=== PATIENT | female | born 1965 | race Caucasian/White ===

== ENCOUNTER 2020-01-27 01:25 | Inpatient (IN) | payer OTHER ==
[2020-01-27] MEDS ORDERED: Diltiazem 125 MG/25 ML ONE ×2 (01:35→01:39)
[2020-01-27 01:57] LABS: #Basophils 0.1 thou/uL (0.0-0.2); #Eosinphils 0.6 thou/uL (0.0-0.7); #Lymphocytes 2.2 thou/uL (1.20-3.40); #Monocytes 0.6 thou/uL (0.11-0.59); #Neutrophils 6.1 thou/uL (1.40-6.50); %Basophils 0.9 % (0.0-1.0); %Lymphocytes 22.8 % (21.0-51.0); %Monocytes 6.6 % (0.0-10.0); %Neutrophils 63.7 % (42.0-75.0); Hemoglobin 15.4 g/dL (12.0-16.0); Mean Corpuscular HGB CONC 33.6 g/dL (32.0-36.0); Mean Corpuscular Hemoglobin 31.3 pg (27.0-31.0); Mean Corpuscular Volume 93.1 fL (78.0-98.0); Mean Platelet Volume 6.8 fL (7.4-10.4); Platelet Count 413 thou/uL (130-400); Red Blood Cell (RBC) Count 4.92 mill/uL (4.20-5.40); White Blood Cell (WBC) Count 9.6 thou/uL (4.8-10.8)
[2020-01-27 02:17] LABS: ALT (SGPT) 33 U/L (8-55); AST (SGOT) 24 U/L (5-34); Albumin 4.6 g/dL (3.5-5.0); Alkaline Phosphatase 168 U/L (40-110); Anion Gap 16 mmol/L (10-20); BUN (Urea Nitrogen) 14 mg/dL (9.8-20.1); Bilirubin, Total 0.9 mg/dL (0.2-1.2); CK (CPK) 50 U/L (29-168); Calc. Creatinine Clearance 0 mL/min (70-130); Calcium 9.7 mg/dL (7.8-10.44); Carbon Dioxide 25 mmol/L (22-29); Chloride 102 mmol/L (98-107); Estimated GFR-MDRD 73; Glucose 129 mg/dL (70-105); Lipase 14 U/L (8-78); Protein, Total 7.6 g/dL (6.0-8.3); Sodium 139 mmol/L (136-145)
[2020-01-27] MEDS ORDERED: Diltiazem HCl 125 MG, Admixture Fee 1 EACH in Sodium Chloride 0.9% 100 ML IVPB SCH (03:30)
[2020-01-27 05:12] LABS: Troponin I 0.042 ng/mL (< 0.028)
[2020-01-27 06:39] VITALS: BMI 26.6
[2020-01-27 08:22] LABS: Troponin I 0.056 ng/mL (< 0.028)
[2020-01-27] MEDS ORDERED: Bisacodyl 5 MG TAB PO PRN (10:15)
[2020-01-27] MEDS ORDERED: Ondansetron PF 4 MG/2 ML Vial IVP PRN (10:15)
[2020-01-27] MEDS ORDERED: Calcium Carbonate 500 MG ChewTAB PO PRN (10:15)
[2020-01-27] MEDS ORDERED: Acetaminophen 325 MG TAB PO PRN (10:15)
[2020-01-27] MEDS ORDERED: Senokot S 8.6-50 MG TAB PO PRN (10:15)
--- NOTE | 2020-01-27 10:24 | RAD ---
PORTABLE CHEST: Date: 01/27/2020 HISTORY: Chest pain. COMPARISON: 01/11/2020. FINDINGS: Cardiomegaly with postop sternotomy change. Mild vascular engorgement appears stable. No focal infilt rate or consolidation. IMPRESSION: Cardiomegaly with mild vascular engorgement. POS: AGW
--- NOTE | 2020-01-27 11:27 | PDOC.HHP ---
Hospitalist HPI - History of Present Illness cough, palpitations History of Present Illness: This is a 54 year old female with history of CAD s/p CABG, prediabetes, polycystic ovary disease who presented to the ER with cough and palpitations. The patient is s/p CABG on 01/08. She was discharged on 01/12. She reports that 01/22 she started developing a cough. She went for a follow up visit with Dr. Mims who told her to take her allergy medicine and to increase the dose of one of her medicines ( possibly entresto?), however patient has not done that yet. Her cough has since progressed from a dry cough to a productive cough with clear phlegm. She reports no relief with claritin and has not been taking flonase or inhaled steroids recently since it makes her blood pressure high. SHe denies fevers, chills ,runny nose or sore throat. SHe does report chest pain with taking a deep breath . She denies leg swelling. SHe does have dyspnea on exertion and gets especially short of breath ambulating to the bathroom . Additionally, the patient complains of palpitations since 01/22 after the patient arrived home from Dr. Fermin's office. She states the first episode occurred around 5 pm after performing chores. It resolved spontaneously after 2 minutes. On 01/23 at around 5:00 pm she experienced another episode that lasted approximately 1-2 minutes. SHe states her blood pressure was 200/120 and her heart rate was 150 at the time. Again this self-resolved and she went to sleep and assumed it was from stress/anxiety or caffeine. She reports performing chores shortly before this episode as well. Last night, she had a third episode of palpitations at around 10:30 pm. Her heart rate was not coming down its own. She experienced chest pain, left arm pain, severe nausea, dizziness and lightheadedness. She became extremely scared and felt she was going to and called her who brought her to the ER. ED Course: WHen the patient presented to the ER, she had a blood pressure of 187/115, heart rate of 150. Her oxygen saturation was normal. EKG showed new onset atrial fibrillation. Labs showed mildly elevated troponin and BNP of 600. She had a chest X ray which showed mild pulmonary vascular congestion. She was given IV fluid, and started on diltiazem drip. Hospitalist ROS - Review of Systems Constitutional: denies: fever, chills ENT: denies: ear pain, ear discharge Respiratory: reports: cough Cardiovascular: denies: chest pain, palpitations, orthopnea Gastrointestinal: denies: nausea, vomiting, abdominal pain, other Genitourinary: denies: dysuria Musculoskeletal: denies: neck pain, shoulder pain, foot pain Skin: denies: rash, lesions Hospitalist History - Past Medical History Cardiac: reports: CAD Other Medical History: Allergies Prediabetes Polycystic ovarian - Past Surgical History Past Surgical History: reports: CABG - Family History Other Family History: sister had bypass surgery and also had an arrhythmia requiring cardioversion - Social History Smoking Status: Former smoker (smoked few cigarettes occasionally, quit since her surgery) Alcohol: reports: None (but used to drink occasionally) Drugs: reports: none Living Situation: Other (with spouse) Occupation: retired, had her own business - Exam General Appearance: NAD, awake alert General - other findings: overweight Eye: PERRL, anicteric sclera ENT: normocephalic atraumatic, no oropharyngeal lesions Neck: no JVD Heart: RRR, no murmur, no gallops, no rubs Respiratory: CTAB, no wheezes, no rales, no ronchi Gastrointestinal: soft, non-tender, non-distended, normal bowel sounds Extremities: no cyanosis, no clubbing, no edema Skin: normal turgor, no lesions, no rashes Neurological: cranial nerve grossly intact, normal sensation to touch, no focal deficits, no new deficit Musculoskeletal: normal tone, normal strength, no muscle wasting Psychiatric: normal affect, normal behavior, A&O x 3, oriented to person Hospitalist Results - Labs Result Diagrams: 01/27/20 01:45 01/27/20 01:45 Lab results: WBC 9.6 thou/uL (4.8-10.8) 01/27/20 01:45 Hgb 15.4 g/dL (12.0-16.0) 01/27/20 01:45 Hct 45.8 % (36.0-47.0) 01/27/20 01:45 MCV 93.1 fL (78.0-98.0) 01/27/20 01:45 Plt Count 413 thou/uL (130-400) H 01/27/20 01:45 Neutrophils % 63.7 % (42.0-75.0) 01/27/20 01:45 Sodium 139 mmol/L (136-145) 01/27/20 01:45 Potassium 4.0 mmol/L (3.5-5.1) 01/27/20 01:45 Chloride 102 mmol/L (98-107) 01/27/20 01:45 Carbon Dioxide 25 mmol/L (22-29) 01/27/20 01:45 BUN 14 mg/dL (9.8-20.1) 01/27/20 01:45 Creatinine 0.82 mg/dL (0.6-1.1) 01/27/20 01:45 Glucose 129 mg/dL (70-105) H 01/27/20 01:45 Calcium 9.7 mg/dL (7.8-10.44) 01/27/20 01:45 Total Bilirubin 0.9 mg/dL (0.2-1.2) 01/27/20 01:45 AST 24 U/L (5-34) 01/27/20 01:45 ALT 33 U/L (8-55) 01/27/20 01:45 Alkaline Phosphatase 168 U/L (40-110) H 01/27/20 01:45 Creatine Kinase 50 U/L (29-168) 01/27/20 01:45 CK-MB (CK-2) 1.0 ng/mL (0-6.6) 01/27/20 01:45 Troponin I 0.056 ng/mL (< 0.028) H 01/27/20 07:43 B-Natriuretic Peptide 601.0 pg/mL (0-100) H 01/27/20 01:45 Serum Total Protein 7.6 g/dL (6.0-8.3) 01/27/20 01:45 Albumin 4.6 g/dL (3.5-5.0) 01/27/20 01:45 Lipase 14 U/L (8-78) 01/27/20 01:45 Hospitalist H&P A/P - Plan Plan: THis is a 54 year old female who presents with afib after recent CABG one week prior as well as cough Afib -patient reports new onset afib after CABG -currently controlled on cardizem drip. Resume home metoprolol dose 25 mg - start lovenox SC BID therapeutic - obtain CTA to rule out PE - repeat ECHO, last one done showed poor EF, but unable to assess - cardiology consult - hold off on diuretic for now til after imaging Cough- possibly from pulm congestion versus allergies vs GERD vs from afib - will order tessalon pearls, PPI - hold off on inhalers for now unless no improvement Elevated troponin - likely type II demand ischemia secondary to afib vs post op - continue to trend troponin for now - repeat ECHO - morphine prn for chest pain CAD s/p CABG - continue aspirin, but will reduce dose to 81 mg since starting anticoagulation - continue statin, metoprolol, entresto - cardiothoracic surgery consult DVT prophylaxis: starting lovenox Code status: full code
[2020-01-27] MEDS ORDERED: Pantoprazole 40 MG VIAL IVP SCH (11:30)
[2020-01-27] MEDS ORDERED: Enoxaparin Sodium 60 MG/0.6 ML SYRINGE SC SCH (11:45)
[2020-01-27] MEDS ORDERED: Hydrocortisone Acetate 25 MG Suppository PR PRN (11:51)
[2020-01-27] MEDS: Morphine 2 MG/ML VIAL SLOW IVP PRN (11:58)
[2020-01-27] MEDS ORDERED: Metoprolol Tartrate 25 MG TAB PO SCH (12:00)
[2020-01-27] MEDS ORDERED: Aspirin 81 mg Enteric Coated Tablet PO SCH (12:15)
--- NOTE | 2020-01-27 12:55 | CT ---
CTA CHEST WITH CONTRAST: Date: 01/27/2020 Axial tomograms obtained following angio protocol with multiplanar reconstructions and 3D postprocess ing. INDICATION: Chest pain. Post CABG procedure. New onset atrial fibrillation. FINDINGS: The pulmonary arteries show adequate opacification. There is no evidence of pulmonary embolus. Thorac ic aorta shows minimal opacification; however, no evidence of dissection identified. Mediastinum unremarkable. Review of the lung bills shows small left pleural effusion. There may be a tiny pericardial effusion present. Streaky atelectasis in the left lung base. No definite infiltrate. Mild vascular congestion with card iomegaly. Images through upper abdomen show nonspecific density in the gallbladder. Consider gallbladder ultras ound. IMPRESSION: 1. No evidence of pulmonary embolus. 2. Small left pleural effusion and mild left basilar atelectasis. 3. Evidence of a tiny pericardial effusion. 4. Increased density in the gallbladder. Correlate with gallbladder ultrasound. POS: AGW
[2020-01-27] MEDS ORDERED: Furosemide 20 MG TAB PO SCH (14:00)
[2020-01-27 14:24] LABS: SARS-CoV-2 MS2 Positive; SARS-CoV-2 N Gene Negative; SARS-CoV-2 S Gene Negative; SARS-CoV-2 by NAA Not Detected (NotDetected); SARS-CoV-2 orf1ab Negative
[2020-01-27] MEDS ORDERED: Iopamidol-370 76% 500 ML 1 ML ONE (14:37)
[2020-01-27] MEDS: Furosemide 40 MG TAB PO SCH (14:51)
[2020-01-27] MEDS ORDERED: Potassium Chloride 20 MEQ TAB PO SCH (15:45)
[2020-01-27] MEDS ORDERED: Furosemide 40 MG/4 ML VIAL SLOW IVP SCH (15:45)
[2020-01-27] MEDS ORDERED: Spironolactone 25 MG TAB PO SCH (16:00)
[2020-01-27 16:24] LABS: CKMB 1.5 ng/mL (0-6.6)
[2020-01-27] MEDS ORDERED: Amiodarone 200 MG TAB PO SCH (16:45)
--- NOTE | 2020-01-27 18:55 | CON ---
DATE OF CONSULTATION: 01/27/2020 REQUESTING PHYSICIAN: Dr. Boone. CHIEF COMPLAINT: Palpitations. HISTORY OF PRESENT ILLNESS: The patient is a 54-year-old woman, who about 3 weeks ago, presented with severe episode of chest pain after having had a more stable pattern of chest pain for the previous few months. She had no ST elevation, but had elevated troponins. She underwent cardiac catheterization, and at the time of her catheterization, she had a markedly elevated LVEDP approaching 40, but an LVEF of approximately 60% to 65%. At the time of revascularization the following day, however, she had an obviously ischemic ventricle with marked hypertrophy and her LVEF was approximately 30% on intraoperative MICHAEL. Her left atrium was noted to be quite enlarged. A transthoracic echocardiogram done in the postoperative period was able to verify decreased contractility, but she had a markedly suboptimal study, making it difficult to more objectively quantify her ejection fraction. Immediately post revascularization, CVPs were much improved. She was started on Entresto and discharged on postoperative day 4 with an admonition to refrain from smoking and because of an elevated bilirubin to refrain from drinking alcohol. About 3 or 4 days ago, she began having a dry cough that was persistent and became somewhat aggravating. It exacerbated some soreness in her sternotomy incision and has resulted in some hoarseness. She had brief episodes of some palpitations, but on the night of presentation, she had persistent palpitations. She describes the sensation as feeling like her chest was going to explode and that she was going to . She was quite scared and she was brought to the hospital and was found to be in atrial fibrillation with a heart rate of 154 and her blood pressure was 187/115, her room air O2 saturations however were 97%. She was started on a Cardizem drip. She persisted in atrial fibrillation with a rapid rate for about 2 hours, but then converted to a sinus rhythm, and upon arrival on the telemetry mack, she had a heart rate of 50 and her blood pressure was 156/84. PAST MEDICAL HISTORY: Significant for known history of coronary artery disease, having undergone stenting of a diagonal about 5 years ago. She has hypertension. SOCIAL HISTORY: She continues to smoke, although she has cut down. Denies any illicit drug use, but had increased her alcohol consumption in the COVID pandemic. MEDICATIONS: Her outpatient medications at the time of her presentation with her ID were; 1. Baby aspirin a day. 2. Coreg 3.125 mg a day. 3. Norvasc 5 mg a day. Her medications at discharge following her surgery were; 1. Adult aspirin. 2. Lipitor 20 mg at bedtime. 3. Lasix 40 mg a day. 4. Lopressor 6.25 mg b.i.d. 5. Potassium 10 mEq a day. 6. Entresto one tablet b.i.d. 7. She was to discontinue her Coreg and her Norvasc. Current medications are; 1. Baby aspirin. 2. Lipitor. 3. Cardizem drip, it has since been stopped. 4. Lovenox 60 mg b.i.d. 5. Lasix 40 mg b.i.d. ALLERGIES: SHE REPORTS ALLERGIES TO PENICILLINS AND TETRACYCLINES. REVIEW OF SYSTEMS: Notable for the palpitations, mild shortness of breath. She denies orthopnea. She denies any change in the quality of her chest discomfort or cough when she leans forward or lies back. PHYSICAL EXAMINATION: GENERAL: She is anxious. VITAL SIGNS: Heart rate is 58, blood pressure 195/89. LUNGS: Clear breath sounds. HEART: Regular rate and rhythm. Her incisions were clean and dry. Right hand on the side of her radial artery harvest is pink. Her sternum is stable. She has minimal if any dependent edema. LABORATORY DATA: Her hemoglobin is 15.4 (preoperatively it was 18, at the time of discharge it was 13.1). Her electrolytes are normal. BUN 14, creatinine 0.82, glucose 129. Her bilirubin is now 0.9, AST is 24, ALT 33, alkaline phosphatase 168. Calcium is 9.7, albumin 4.6. BNP is 601.0. Her troponins were 0.035, 0.042, and 0.056. Her chest x-ray showed some mild to moderate edema, cardiomegaly, and very slight blunting of the left costophrenic angle. Her CT scan showed a small left pleural effusion. IMPRESSION AND RECOMMENDATIONS: She will almost surely require medications to keep her atrial fibrillation under control, but based upon response to Cardizem and her underlying slow heart rate during her last hospitalization, she may not tolerate negative chronotropes very well. Her incisions all seem to be healing well and her sternum seems to be tolerating the cough so far. My only thing to add to raise the question of whether the valsartan in her Entresto could be contributing to her cough. I have discussed this with Dr. Borden. He is going to hold that for now. Job ID: [id number]
[2020-01-27] MEDS: Benzonatate 100 MG CAP PO PRN ×2 (19:12→23:53)
[2020-01-27] MEDS: Enoxaparin Sodium 60 MG/0.6 ML SYRINGE SC SCH (19:59)
[2020-01-27] MEDS: Atorvastatin Calcium 20 MG TAB PO SCH (20:00)
[2020-01-27] MEDS: Amiodarone 200 MG TAB PO SCH (20:00)
[2020-01-27] MEDS: Pantoprazole 40 MG VIAL IVP SCH (20:01)
[2020-01-27 20:59] LABS: CKMB 1.6 ng/mL (0-6.6)
[2020-01-28] MEDS: Morphine 2 MG/ML VIAL SLOW IVP PRN ×2 (02:34→21:32)
[2020-01-28 04:26] LABS: #Basophils 0.1 thou/uL (0.0-0.2); #Eosinphils 0.4 thou/uL (0.0-0.7); #Lymphocytes 2.2 thou/uL (1.20-3.40); #Monocytes 0.6 thou/uL (0.11-0.59); %Basophils 1.2 % (0.0-1.0); %Eosinophils 4.7 % (0.0-10.0); %Lymphocytes 26.7 % (21.0-51.0); %Monocytes 6.7 % (0.0-10.0); %Neutrophils 60.7 % (42.0-75.0); Hemoglobin 13.8 g/dL (12.0-16.0); Mean Corpuscular HGB CONC 33.5 g/dL (32.0-36.0); Mean Corpuscular Hemoglobin 31.3 pg (27.0-31.0); Mean Corpuscular Volume 93.4 fL (78.0-98.0); Mean Platelet Volume 6.8 fL (7.4-10.4); Platelet Count 321 thou/uL (130-400); Red Blood Cell (RBC) Count 4.42 mill/uL (4.20-5.40); White Blood Cell (WBC) Count 8.2 thou/uL (4.8-10.8)
[2020-01-28 04:44] LABS: Anion Gap 15 mmol/L (10-20); BUN (Urea Nitrogen) 14 mg/dL (9.8-20.1); Calc. Creatinine Clearance 86 mL/min (70-130); Calcium 9.4 mg/dL (7.8-10.44); Carbon Dioxide 23 mmol/L (22-29); Chloride 103 mmol/L (98-107); Estimated GFR-MDRD 68; Glucose 111 mg/dL (70-105); Potassium 3.9 mmol/L (3.5-5.1); Sodium 137 mmol/L (136-145)
--- NOTE | 2020-01-28 06:25 | CON ---
DATE OF CONSULTATION: PRIMARY COOK RESTAURANT: Dr. Ari Mims. REASON FOR CONSULTATION: Tachycardia, recent bypass surgery. HISTORY OF PRESENT ILLNESS: Ms. Schmidt is a very pleasant 54-year-old woman. She recently underwent coronary artery bypass grafting. The patient had undergone cardiac catheterization on 01/08/2020, found to have a long mid LAD lesion, severe lesion in the obtuse marginal 1, occluded groove of circumflex and attempted wire placement would not cross, proximal RCA disease, normal ejection fraction, markedly increased end-diastolic pressure. The patient underwent bypass surgery successfully by Dr. Jacob. The patient did well in the postoperative period, but she said she has been short of breath and feels like it is hard to get a good deep breath. She has also had feeling of a rapid heart rate, some very brief, but the one that brought her to the hospital was very rapid and very uncomfortable to her. She came here to the hospital, found to have a tachycardia. EKG reveals a rate of 157. The computer read it as atrial fibrillation, but it may be atrial flutter, it is hard to tell. She also has a right bundle-branch block. The patient was started on diltiazem, and at some point, converted into sinus rhythm and sinus bradycardia. The patient feels well now, but still feels like she can not get a good deep breath. She also has a severe cough she has been unable to get rid of. HOME MEDICATIONS: She is on; 1. Lasix 40 mg a day for 14 days. 2. Atorvastatin 20 mg a day. 3. Aspirin. 4. Metoprolol 6.25 mg twice a day. 5. Potassium. 6. Entresto twice a day. ALLERGIES: PENICILLIN AND TETRACYCLINES. REVIEW OF SYSTEMS: CONSTITUTIONAL: No significant weight gain or loss. VISION: No changes. HEARING: No changes. PULMONARY: Positive for cough. Positive for shortness of breath. CARDIAC: Positive for shortness of breath, hard to get a good deep breath. GASTROINTESTINAL: No nausea, vomiting, or diarrhea. SKIN: No rashes. NEUROLOGIC: No unilateral weakness or numbness. PSYCHIATRIC: No unusual depression or anxiety. PHYSICAL EXAMINATION: GENERAL: This is a pleasant 54-year-old woman, resting comfortably now. VITAL SIGNS: Heart rate is in the mid 50s, blood pressure, however, is high at 195/89, . LUNGS: Clear. CARDIAC: Normal S1, normal S2. ABDOMEN: Soft and nontender. EXTREMITIES: Warm and dry. No clubbing or cyanosis. Only minimal edema. PERTINENT LABORATORY DATA: Potassium is 4.0. BNP is high at 601. EKG revealed a tachycardia with a right bundle-branch block pattern that could be atrial fibrillation, but it could also be atrial flutter or atrial tachycardia. Now, she is in sinus bradycardia. ASSESSMENT: 1. Shortness of breath, probably related to diastolic heart failure. 2. Atrial arrhythmias as outlined above. We will start low-dose amiodarone and observe. Explained we would not want her to have long-term amiodarone therapy, which would have a significant risk of pulmonary toxicity. 3. Continue to monitor. If she has what looks like atrial flutter, may need EP consult for ablation. We will follow with you. Job ID: [id number]
--- NOTE | 2020-01-28 07:47 | ULT ---
GALLBLADDER ULTRASOUND: INDICATIONS: Abdominal pain. Epigastric pain. FINDINGS: Images of the gallbladder reveal echogenic sludge within the dependent portion of the gallbladder. No focal gallstone identified. The gallbladder wall is mildly prominent, measured at 3 to 4 mm. The shobha hnologist describes a negative Fountain sign. The common bile duct is of normal caliber. The visualized pancreas, liver and right kidney appear unr emarkable. IMPRESSION: Evidence of echogenic sludge within the gallbladder and mild gallbladder wall thickening. POS: AGW
[2020-01-28] MEDS: Spironolactone 25 MG TAB PO SCH (09:14)
[2020-01-28] MEDS: Furosemide 40 MG TAB PO SCH ×2 (09:14→14:33)
[2020-01-28] MEDS: Amiodarone 200 MG TAB PO SCH ×2 (09:14→14:42)
[2020-01-28] MEDS: Enoxaparin Sodium 60 MG/0.6 ML SYRINGE SC SCH ×2 (09:14→21:57)
[2020-01-28] MEDS: Pantoprazole 40 MG VIAL IVP SCH ×2 (09:14→21:32)
[2020-01-28] MEDS: Aspirin 81 mg Enteric Coated Tablet PO SCH (09:14)
--- NOTE | 2020-01-28 15:21 | PDOC.HOSPP ---
- Subjective Encounter Date: 01/28/20 Encounter Time: 12:00 Subjective: The patient states she is feeling much better. Cough resolved last night, she is not sure what helped if it was cough medication or something else She is sinus rhythm today but was tachycardic this morning. Patient expresses desire to not be on long-term amiodarone and would be interested in an ablation - Objective Vital Signs & Weight: Vital Signs (12 hours) Temp Pulse Resp BP Pulse Ox 01/28/20 12:00 98 01/28/20 11:33 97.9 F 58 L 16 144/83 H 01/28/20 11:30 53 L 144/83 H 98 01/28/20 07:00 97.7 F 56 L 18 177/95 H 95 Weight Weight 160 lb I&O: 01/27/20 01/28/20 01/29/20 06:59 06:59 06:59 Intake Total 1139.1 477 Output Total 1400 Balance -260.9 477 Result Diagrams: 01/28/20 04:13 01/28/20 04:13 Hospitalist ROS - Review of Systems Constitutional: denies: fever, chills - Medication Medications: Active Medications Generic Name Dose Route Start Last Admin Trade Name Freq PRN Reason Stop Dose Admin Acetaminophen 650 mg 01/27/20 10:15 01/27/20 23:53 Tylenol PO 650 mg Q4H PRN Administration Headache/Fever/Mild Pain (1-3) Amiodarone HCl 200 mg 01/27/20 21:00 01/28/20 14:42 Cordarone PO 200 mg TID COSME Administration Aspirin 81 mg 01/28/20 09:00 01/28/20 09:14 Ecotrin PO 81 mg DAILY COSME Administration Atorvastatin Calcium 20 mg 01/27/20 21:00 01/27/20 20:00 Lipitor PO 20 mg HS COSME Administration Benzonatate 100 mg 01/27/20 11:26 01/27/20 23:53 Tessalon PO 100 mg TIDPRN PRN Administration Cough Enoxaparin Sodium 60 mg 01/27/20 21:00 01/28/20 09:14 Lovenox SC 60 mg 0900,2100 COSME Administration Furosemide 40 mg 01/27/20 14:00 01/28/20 14:33 Lasix PO 40 mg 0900,1400 COSME Administration Metoprolol Succinate 25 mg 01/28/20 09:00 01/28/20 09:14 Toprol Xl PO 25 mg BID COSME Administration Morphine Sulfate 2 mg 01/27/20 11:30 01/28/20 02:34 Morphine SLOW IVP 2 mg Q4H PRN Administration Pain Pantoprazole Sodium 40 mg 01/27/20 21:00 01/28/20 09:14 Protonix IVP 40 mg Q12HR COSME Administration Sodium Chloride 10 ml 01/27/20 21:00 01/28/20 09:15 Flush - Normal Saline IVF 10 ml Q12HR COSME Administration Spironolactone 25 mg 01/28/20 08:00 01/28/20 09:14 Aldactone PO 25 mg QAM-WM COSME Administration - Exam General Appearance: NAD, awake alert Eye: PERRL, anicteric sclera ENT: normocephalic atraumatic, no oropharyngeal lesions Neck: no JVD Heart: RRR, no murmur, no gallops, no rubs Respiratory: CTAB, no wheezes, no rales, no ronchi Gastrointestinal: soft, non-tender, non-distended, normal bowel sounds Extremities: no cyanosis, no clubbing, no edema Skin: normal turgor, no lesions, no rashes Neurological: cranial nerve grossly intact, normal sensation to touch, no focal deficits, no new deficit Hosp A/P - Plan CTA thorax: left pleural effusion, tiny pericardial effusion Abd Ultrasound: echogenic sludge with mild gallbladder wall thickening THis is a 54 year old female who presents with afib after recent CABG one week prior as well as cough Afib/flutter - currently off cardizem drip - she has been started on amiodarone by cardiology. EP has been consulted - CTA negative for PE - repeat ECHO pending - continue therapeutic lovenox Cough- possibly from pleural effusion versus allergies vs GERD vs from afib - CTA showed left pleural effusion. She received IV lasix yesterday 40 mg - continue tessalon pearls prn - entresto has been discontinued due to concerns for cough - kavon prn Elevated troponin - likely type II demand ischemia secondary to afib vs post op -troponin downtrending, ECHO done and pending CAD s/p CABG - continue aspirin, but will reduce dose to 81 mg since starting anticoagulation - continue statin, metoprolol. Entresto held due to cough - cardiothoracic surgery is following - she is on lasix 40 mg bid Gallbladder density - abd US showed sludge Dispo: EP consult in am
[2020-01-28] MEDS ORDERED: Loratadine 10 MG TAB PO PRN (15:22)
[2020-01-28] MEDS: Benzonatate 100 MG CAP PO PRN (21:32)
[2020-01-28] MEDS: Atorvastatin Calcium 20 MG TAB PO SCH (21:32)
[2020-01-29 04:22] LABS: Hemoglobin 14.8 g/dL (12.0-16.0)
[2020-01-29 04:44] LABS: Anion Gap 16 mmol/L (10-20); BUN (Urea Nitrogen) 17 mg/dL (9.8-20.1); Calc. Creatinine Clearance 94 mL/min (70-130); Calcium 9.8 mg/dL (7.8-10.44); Carbon Dioxide 24 mmol/L (22-29); Chloride 99 mmol/L (98-107); Estimated GFR-MDRD 68; Glucose 101 mg/dL (70-105); Potassium 4.1 mmol/L (3.5-5.1); Sodium 135 mmol/L (136-145)
[2020-01-29] MEDS ORDERED: ALPRAZolam 0.5 MG TAB PO SCH (04:45)
[2020-01-29] MEDS: Enoxaparin Sodium 60 MG/0.6 ML SYRINGE SC SCH (14:00)
[2020-01-29] MEDS: Furosemide 40 MG TAB PO SCH ×2 (14:00→14:25)
[2020-01-29] MEDS: Pantoprazole 40 MG VIAL IVP SCH ×2 (14:01→21:10)
--- NOTE | 2020-01-29 14:23 | PDOC.HOSPP ---
- Subjective Encounter Date: 01/29/20 Encounter Time: 10:00 Subjective: The patient reports only a mild cough. She states that yesterday at 6:00 am she had episode of afib and another episode in the evening yesterday which lasted approximately five minutes. She was in sinus rhythm on my eval this morning. She denies palpitations. Reported that she did not want to be on amiodarone and preferred ablation and was very anxious to get procedure over with Per cardiology she has agreed to multaq however - Objective Vital Signs & Weight: Vital Signs (12 hours) Temp Pulse Resp BP Pulse Ox 01/29/20 11:27 98.0 F 61 18 179/97 H 95 01/29/20 08:06 95 01/29/20 07:44 97.7 F 53 L 18 171/89 H 95 01/29/20 04:00 98.4 F 22 H 181/97 H 93 L Weight Weight 175 lb 1.6 oz I&O: 01/28/20 01/29/20 01/30/20 06:59 06:59 06:59 Intake Total 1139.1 1437 Output Total 1400 1450 Balance -260.9 -13 Result Diagrams: 01/29/20 04:12 01/29/20 04:12 Hospitalist ROS - Review of Systems Constitutional: denies: fever, chills - Medication Medications: Active Medications Generic Name Dose Route Start Last Admin Trade Name Freq PRN Reason Stop Dose Admin Acetaminophen 650 mg 01/27/20 10:15 01/27/20 23:53 Tylenol PO 650 mg Q4H PRN Administration Headache/Fever/Mild Pain (1-3) Aspirin 81 mg 01/28/20 09:00 01/28/20 09:14 Ecotrin PO 81 mg DAILY COSME Administration Atorvastatin Calcium 20 mg 01/27/20 21:00 01/28/20 21:32 Lipitor PO 20 mg HS COSME Administration Benzonatate 100 mg 01/27/20 11:26 01/28/20 21:32 Tessalon PO 100 mg TIDPRN PRN Administration Cough Bisacodyl 10 mg 01/27/20 10:15 01/28/20 21:38 Dulcolax PO 10 mg DAILYPRN PRN Administration Constipation Enoxaparin Sodium 60 mg 01/27/20 21:00 01/29/20 14:00 Lovenox SC Not Given 0900,2100 COSME Furosemide 40 mg 01/27/20 14:00 01/29/20 14:00 Lasix PO Not Given 0900,1400 COSME Morphine Sulfate 2 mg 01/27/20 11:30 01/28/20 21:32 Morphine SLOW IVP 2 mg Q4H PRN Administration Pain Pantoprazole Sodium 40 mg 01/27/20 21:00 01/29/20 14:01 Protonix IVP Not Given Q12HR COSME Sodium Chloride 10 ml 01/27/20 21:00 01/28/20 21:32 Flush - Normal Saline IVF 10 ml Q12HR COSME Administration Spironolactone 25 mg 01/28/20 08:00 01/28/20 09:14 Aldactone PO 25 mg QAM-WM COSME Administration - Exam General Appearance: NAD, awake alert Eye: PERRL, anicteric sclera ENT: normocephalic atraumatic, no oropharyngeal lesions Neck: no JVD Heart: RRR, no murmur, no gallops, no rubs Respiratory: CTAB, no wheezes, no rales, no ronchi Gastrointestinal: soft, non-tender, non-distended, normal bowel sounds Extremities: no cyanosis, no clubbing, no edema Skin: normal turgor, no lesions, no rashes Neurological: cranial nerve grossly intact, normal sensation to touch, no focal deficits, no new deficit Musculoskeletal: normal tone, normal strength, no muscle wasting Hosp A/P - Plan CTA thorax: left pleural effusion, tiny pericardial effusion Abd Ultrasound: echogenic sludge with mild gallbladder wall thickening THis is a 54 year old female who presents with afib after recent CABG one week prior as well as cough Afib/flutter - currently off cardizem drip, on toprol XL 25 mg daily - amiodarone was switched to dronedarone. Plan for outpatient ablation in one to two weeks - will switch from lovenox to eliquis Hypertension - started on spironolactone 25 mg, continue metoprolol XL 25 mg daily - will add lisinopril 5 mg daily Cough- possibly from pleural effusion versus allergies vs GERD vs from afib - CTA showed left pleural effusion. She received IV lasix 40 mg on 01/27 - continue tessalon pearls prn - entresto has been discontinued due to concerns for cough - kavon prn - repeat chest X ray to assess resolution of pleural effusion Elevated troponin - likely type II demand ischemia secondary to afib vs post op -troponin downtrending, ECHO done and shows no wall motion abnormalities CAD s/p CABG - continue aspirin 81 mg, statin, metoprolol - she is stable from CV surgery standpoint Gallbladder density - abd US showed sludge Dispo: EP consult in am
[2020-01-29] MEDS: Spironolactone 25 MG TAB PO SCH (14:25)
[2020-01-29] MEDS: Aspirin 81 mg Enteric Coated Tablet PO SCH (14:25)
[2020-01-29] MEDS ORDERED: Lisinopril 5 MG TAB PO SCH (14:30)
--- NOTE | 2020-01-29 15:01 | PDOC.CPN ---
- Subjective Date: 01/29/20 Time: 15:04 Interval history: The pt seen and examined. No overnight events. No cardiac complaints. - Objective Allergies/Adverse Reactions: Allergies Allergy/AdvReac Type Severity Reaction Status Date / Time Penicillins Allergy Verified 01/09/20 00:50 Tetracyclines Allergy Verified 01/09/20 00:50 Visit Medications: Current Medications Acetaminophen (Tylenol) 650 mg PO Q4H PRN PRN Reason: Headache/Fever/Mild Pain (1-3) Last Admin: 01/27/20 23:53 Dose: 650 mg Apixaban (Eliquis) 5 mg PO BID [facility] Aspirin (Ecotrin) 81 mg PO DAILY [facility] Last Admin: 01/29/20 14:25 Dose: 81 mg Atorvastatin Calcium (Lipitor) 20 mg PO [facility] Last Admin: 01/28/20 21:32 Dose: 20 mg Benzonatate (Tessalon) 100 mg PO TIDPRN PRN PRN Reason: Cough Last Admin: 01/28/20 21:32 Dose: 100 mg Bisacodyl (Dulcolax) 10 mg PO DAILYPRN PRN PRN Reason: Constipation Last Admin: 01/28/20 21:38 Dose: 10 mg Calcium Carbonate (Tums) 1,000 mg PO Q4H PRN PRN Reason: Heartburn or Indigestion Dronedarone (Multaq) 400 mg PO BID-[facility] Furosemide (Lasix) 40 mg PO 0900,1400 [facility] Last Admin: 01/29/20 14:25 Dose: 40 mg Hydrocortisone Acetate (Anusol-Hc) 25 mg AR BID PRN PRN Reason: Hemorrhoids Lisinopril (Zestril) 5 mg PO DAILY [facility] Lisinopril (Zestril) 5 mg PO NOW [facility] Stop: 01/29/20 16:30 Last Admin: 01/29/20 14:33 Dose: 5 mg Loratadine (Claritin) 10 mg PO DAILYPRN PRN PRN Reason: Allergies Metoprolol Succinate (Toprol Xl) 25 mg PO DAILY [facility] Last Admin: 01/29/20 14:25 Dose: 25 mg Morphine Sulfate (Morphine) 2 mg SLOW IVP Q4H PRN PRN Reason: Pain Last Admin: 01/28/20 21:32 Dose: 2 mg Ondansetron HCl (Zofran) 4 mg IVP Q6H PRN PRN Reason: Nausea/Vomiting Pantoprazole Sodium (Protonix) 40 mg IVP Q12HR [facility] Last Admin: 01/29/20 14:01 Dose: Not Given Senna/Docusate Sodium (Senokot S) 2 tab PO BID PRN PRN Reason: Constipation Sodium Chloride (Flush - Normal Saline) 10 ml IVF Q12HR [facility] Last Admin: 01/29/20 14:26 Dose: 10 ml Sodium Chloride (Flush - Normal Saline) 10 ml IVF PRN PRN PRN Reason: Saline Flush Spironolactone (Aldactone) 25 mg PO QAM-WM [facility] Last Admin: 01/29/20 14:25 Dose: 25 mg Vital Signs & Weight: Vital Signs Temp Pulse Resp BP Pulse Ox 01/29/20 11:27 98.0 F 61 18 179/97 H 95 01/29/20 08:06 95 01/29/20 07:44 97.7 F 53 L 18 171/89 H 95 01/29/20 04:00 98.4 F 22 H 181/97 H 93 L Weight 175 lb 1.6 oz - Physical Exam General: alert & oriented x3 HEENT: mucus membranes moist Neck: supple neck Cardiac: regular rate and rhythm, S1/S2 Lungs: decreased breath sounds Skin: other (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 Afib/flutter with RVR - converted back and remains in SR for more than 24 hrs; on Multaq BID, Metoprolol 25mg qd and Eliquis 5mg BID; The pt will f/u with [facility] in a few wks for possible RFA; 2. HTN - Lisinopril 5 mg qd was started from today 3. CAD with s/p CABG in 12/2019 - stable; on Metoprolol, Lisinopril, ASA, and Lipitor 4. HLD - on statin 5. Lt pleural effusion - on Lasix; her cough has been stable 6. sludge Gallbladder - 7. Anxiety - strongly recommend regular exercise MAR reviewed * Echo on 01/28/2020 with EF 55-60%, mod LVH, mod-severe LAE, and mild TR Pt. seen and eval. by me. I agree with the A/P by the GEOGRAPHY DEPARTMENT CHAIR. She was seen by EP today and options were discussed. See EP notes. Chest clear. RRR, no edema. [email or web address]
--- NOTE | 2020-01-29 15:12 | RAD ---
EXAM: CHEST ONE VIEW HISTORY: Reevaluation left pleural effusion. COMPARISON: 01/27/2020 and CTA chest on 01/27/2020 FINDINGS: Postoperative changes related to CABG are again seen. The cardiac silhouette remains mildly enlarged. Pulmonary vasculature is within normal limits. Mild atelectasis is present at the left lung base. Previously seen left pleural effusion on CTA chest is not visualized on this portable AP chest x-ray. Right lung remains clear. No interval change compared to prior exam. IMPRESSION: 1. Mild atelectasis left lung base. The small left pleural effusion seen at the left lung base on CTA chest is not visualized on this exam.
[2020-01-29] MEDS: Dronedarone HCl 400 MG TAB PO SCH (16:33)
[2020-01-29] MEDS: Apixaban 5 MG TAB PO SCH (21:10)
[2020-01-29] MEDS: Atorvastatin Calcium 20 MG TAB PO SCH (21:10)
[2020-01-29] MEDS: Benzonatate 100 MG CAP PO PRN (21:24)
[2020-01-29] MEDS: Morphine 2 MG/ML VIAL SLOW IVP PRN (21:24)
[2020-01-30] MEDS: Apixaban 5 MG TAB PO SCH ×2 (08:51→21:44)
[2020-01-30] MEDS: Spironolactone 25 MG TAB PO SCH (08:55)
[2020-01-30] MEDS: Aspirin 81 mg Enteric Coated Tablet PO SCH (08:56)
[2020-01-30] MEDS: Dronedarone HCl 400 MG TAB PO SCH ×2 (08:56→17:00)
[2020-01-30] MEDS: Furosemide 40 MG TAB PO SCH ×2 (08:56→13:29)
[2020-01-30] MEDS: Pantoprazole 40 MG VIAL IVP SCH ×2 (08:58→21:45)
[2020-01-30] MEDS ORDERED: Lisinopril 10 MG TAB PO SCH (09:00)
[2020-01-30] MEDS ORDERED: Lisinopril 5 MG TAB PO SCH (09:00)
--- NOTE | 2020-01-30 09:19 | CON ---
DATE OF CONSULTATION: 01/29/2020 Dictated by Maria Elena Crews, nurse practitioner, as a scribe for Dr. Cas Doll. REASON FOR CONSULTATION: Atrial fibrillation management/atrial flutter. Consultation performed by Dr. Cas Doll. PRIMARY IP PARALEGAL: Dr. Mims. HISTORY OF PRESENT ILLNESS: Ms. Schmidt is a 54-year-old woman, followed by Dr. Mims for coronary artery disease. She underwent recent 4-vessel bypass on 01/09/2020 for the LAD, OM1, circumflex, and proximal RCA. The left atrial appendage was not ligated at the time of surgery. She was recently found to have a persisting cough with a rapid heart rate and called 911. Her heart rate was approximately 150 to 160 beats per minute. This is a new diagnosis for her. She was started on diltiazem drip for rate control, which converted her to sinus rhythm and occasional sinus bradycardia. Initially, her EKG showed 2:1 atrial flutter, possibly cavotricuspid isthmus dependent in origin. Later, she was seen to have stretches of atrial fibrillation as well that were paroxysmal. EP consultation has been requested for consideration of ablation and also for atrial fibrillation management. She is anxious and worried with all the recent developments, but currently her cough is resolved. She is not reporting any heart racing or further palpitations. She has not had any stroke, stroke-like symptoms, or syncopal episodes. PAST MEDICAL HISTORY: 1. Coronary artery disease, status post 4-vessel coronary artery bypass grafting on 01/09/2020 mid LAD, OM1, circumflex, proximal RCA. 2. Borderline diabetic. 3. Polycystic ovarian disease. 4. History of anorexia, bulimia. FAMILY HISTORY: Sister had bypass and also an ICD. Father had 3 open-heart surgeries and a stroke. SOCIAL HISTORY: , lives with her spouse. Former smoker, recently quit. Alcohol, none. Illicit drug use, none. Occupation, retired. ALLERGIES: PENICILLINS AND TETRACYCLINES. HOME MEDICATION LIST: 1. Entresto one tablet b.i.d. 2. Klor-Con 10 mEq q.a.m. 3. MiraLAX 17 g daily. 4. Lopressor 6.25 mg p.o. b.i.d. 5. Anusol 25 mg p.r. b.i.d. 6. Lasix 40 mg daily. 7. Lipitor 20 mg at bedtime. 8. Aspirin 325 mg daily. REVIEW OF SYSTEMS: A 12-point review of systems was otherwise unremarkable and as per HPI. OBJECTIVE: VITAL SIGNS: Temperature 98.0, pulse 61, blood pressure 179/97, respirations 18, and oxygen 95% on room air. GENERAL: The patient is alert and oriented. Speech is clear. Affect is anxious. She is in no apparent distress. Resting comfortably in bed at the time of the exam. HEENT: She is normocephalic and atraumatic. Her sclerae are anicteric. EOMs are intact. Oral mucosa is moist and pink with adequate dentition. NECK: Supple without jugular venous distention. There is no lymphadenopathy. HEART: Rate is with a crisp S1 and S2. Recent midsternal incision from her sternotomy around bypass is noted and healing nicely without signs of infection. There is a right radial graft site incision that is healing nicely as well. ABDOMEN: Soft and nontender without palpable masses. Hepatojugular reflux is negative. EXTREMITIES: Warm and dry to touch. Well perfused without clubbing, cyanosis, or edema. NEUROLOGIC: Grossly intact and nonfocal. Gait was not assessed. LABORATORY DATA: Hematology on 01/27 was unremarkable. Chemistry on 01/28; sodium 135, potassium 4.1, creatinine 0.87. Serial troponins were indeterminate, peaked at 0.064. ALT and AST within normal ranges. Alkaline phosphatase 168. BNP on admission was 601. Telemetry and EKGs; initial presenting ECG shows 2:1 atrial flutter with ventricular rate of 157 beats per minute with an underlying right bundle-branch block morphology, QRS is slightly prolonged at 124 milliseconds. Episodes of atrial fibrillation and paroxysmal atrial tachycardia are seen on telemetry tracings. Currently, she is in sinus rhythm/sinus bradycardia, ventricular rates in the 50s. Echocardiogram on 01/28/2020, EF 55% to 60%, with moderate concentric LVH. Left atrium is moderately to severely dilated at 5.21 cm, no significant valvular disease is noted. IMPRESSION: 1. New onset atrial flutter, possibly typical, and paroxysmal atrial fibrillation seen, now in sinus rhythm after amiodarone. 2. Coronary artery disease, status post recent 4-vessel bypass on 01/09/2020. 3. Hypertension. 4. CHADS-VASc score of 3 to 4, considering gender, vascular disease, hypertension, and potential diabetes. Hemoglobin A1c is 6.4%. Currently not on anticoagulation. PLAN AND RECOMMENDATIONS: I had a long discussion with Ms. Schmidt and her today regarding atrial arrhythmias, the etiology and potential treatment options. Given the recent bypass, atrial arrhythmia occurrence is not uncommon post bypass. She has significant reservations about the side-effect profile of the amiodarone and she also has a tendency for bradycardia. We discussed treatment options of simple rate control with AV isak blocking medications, antiarrhythmic therapy, and ablation. Recommend starting Multaq 400 mg p.o. b.i.d. and monitoring for bradycardia. I feel she would benefit from a cavotricuspid isthmus ablation in the future, especially if there is arrhythmia recurrence. She will require anticoagulation and Eliquis 5 mg p.o. b.i.d. will be initiated. We discussed the potential side effects of Eliquis and potential bleeding complications. She has no history of bleeding dyscrasias and is agreeable to start. We discussed potential side effects with Multaq as well and she is agreeable to this medication. We will plan for an ablation in the near future. I would like her to be monitored overnight while initiating these medications and also while her blood pressure is optimized. She will likely be ready for discharge in the morning from an EP perspective if she is in sinus rhythm. Thank you for allowing me to participate in the care of this patient. Job ID: [id number]
[2020-01-30 09:20] LABS: Hemoglobin 14.4 g/dL (12.0-16.0); Platelet Count 307 thou/uL (130-400)
--- NOTE | 2020-01-30 12:00 | PDOC.CPN ---
- Subjective Date: 01/30/20 Time: 09:00 Interval history: The pt seen and examined. NO overnight events. No cardiac complaints. She stated she feels more energy and no SOB today - Objective Allergies/Adverse Reactions: Allergies Allergy/AdvReac Type Severity Reaction Status Date / Time Penicillins Allergy Verified 01/09/20 00:50 Tetracyclines Allergy Verified 01/09/20 00:50 Visit Medications: Current Medications Acetaminophen (Tylenol) 650 mg PO Q4H PRN PRN Reason: Headache/Fever/Mild Pain (1-3) Last Admin: 01/27/20 23:53 Dose: 650 mg Apixaban (Eliquis) 5 mg PO BID [facility] Last Admin: 01/30/20 08:51 Dose: 5 mg Aspirin (Ecotrin) 81 mg PO DAILY [facility] Last Admin: 01/30/20 08:56 Dose: 81 mg Atorvastatin Calcium (Lipitor) 20 mg PO HS [facility] Last Admin: 01/29/20 21:10 Dose: 20 mg Benzonatate (Tessalon) 100 mg PO TIDPRN PRN PRN Reason: Cough Last Admin: 01/29/20 21:24 Dose: 100 mg Bisacodyl (Dulcolax) 10 mg PO DAILYPRN PRN PRN Reason: Constipation Last Admin: 01/28/20 21:38 Dose: 10 mg Calcium Carbonate (Tums) 1,000 mg PO Q4H PRN PRN Reason: Heartburn or Indigestion Dronedarone (Multaq) 400 mg PO BID-WM [facility] Last Admin: 01/30/20 08:56 Dose: 400 mg Furosemide (Lasix) 40 mg PO 0900,1400 [facility] Last Admin: 01/30/20 08:56 Dose: 40 mg Hydrocortisone Acetate (Anusol-Hc) 25 mg AL BID PRN PRN Reason: Hemorrhoids Lisinopril (Zestril) 10 mg PO BID [facility] Last Admin: 01/30/20 08:56 Dose: 10 mg Loratadine (Claritin) 10 mg PO DAILYPRN PRN PRN Reason: Allergies Metoprolol Succinate (Toprol Xl) 12.5 mg PO DAILY [facility] Last Admin: 01/30/20 08:58 Dose: Not Given Morphine Sulfate (Morphine) 2 mg SLOW IVP Q4H PRN PRN Reason: Pain Last Admin: 01/29/20 21:24 Dose: 2 mg Ondansetron HCl (Zofran) 4 mg IVP Q6H PRN PRN Reason: Nausea/Vomiting Pantoprazole Sodium (Protonix) 40 mg IVP Q12HR [facility] Last Admin: 01/30/20 08:58 Dose: 40 mg Senna/Docusate Sodium (Senokot S) 2 tab PO BID PRN PRN Reason: Constipation Sodium Chloride (Flush - Normal Saline) 10 ml IVF Q12HR [facility] Last Admin: 01/30/20 09:00 Dose: 10 ml Sodium Chloride (Flush - Normal Saline) 10 ml IVF PRN PRN PRN Reason: Saline Flush Spironolactone (Aldactone) 25 mg PO QAM-WM [facility] Last Admin: 01/30/20 08:55 Dose: 25 mg Vital Signs & Weight: Vital Signs Temp Pulse Resp BP BP Pulse Ox 01/30/20 07:40 98.2 F 48 L 16 136/77 93 L 01/30/20 03:40 97.9 F 56 L 18 161/73 H 95 Weight 175 lb 8 oz - Physical Exam General: alert & oriented x3 HEENT: mucus membranes moist Neck: supple neck Cardiac: regular rate and rhythm, S1/S2 Lungs: clear to auscultation Neuro: cranial nerve 2-12 intact Extremities: no edema - Labs Result Diagrams: 01/31/20 03:50 01/31/20 03:30 Troponin/CKMB CK-MB (CK-2) 1.6 ng/mL (0-6.6) 01/27/20 20:11 Troponin I 0.058 ng/mL (< 0.028) H 01/27/20 20:11 - Telemetry Sinus rhythms and dysrhythmias: sinus rhythm - Assessment/Plan Assessment/Plan: 1. Afib/flutter with RVR - converted back and remains in SR for more than 24 hrs; on Multaq BID, Eliquis 5mg BID, and Metoprolol which was decreased from 25mg to 12.5mg qd due to bradycardia; Plan for RFA tomorrow? 2. HTN - Lisinopril 5 mg was increased to BID from today 3. CAD with s/p CABG in 12/2019 - stable; on Metoprolol, Lisinopril, ASA, and Lipitor 4. HLD - on statin 5. Lt pleural effusion - on Lasix; her cough has been stable 6. sludge Gallbladder - 7. Anxiety - strongly recommend regular exercise MAR reviewed * Echo on 01/28/2020 with EF 55-60%, mod LVH, mod-severe LAE, and mild TR Pt. seen and eval. by me. I agree with the A/P by the BAKER HELPER. She denies SOB today. Plan for ablation in AM.
[2020-01-30] MEDS ORDERED: Docusate 100 MG CAP PO SCH (12:15)
[2020-01-30] MEDS: Morphine 2 MG/ML VIAL SLOW IVP PRN ×2 (13:43→21:46)
--- NOTE | 2020-01-30 17:02 | PDOC.HOSPP ---
- Subjective Encounter Date: 01/30/20 Encounter Time: 15:00 Subjective: The patient states her cough returned after restarting lisinopril and was difficult to control . She had some production to the cough She denies palpitations She stated that she decided to go with the ablation tomorrow. She called her insurance company, was concerned that multaq costs 300 dollars a month, states that dofetilide and propafenone are covered and are cheaper. However after discussion, she has decided to continue with multaq and pay out of pocket - Objective Vital Signs & Weight: Vital Signs (12 hours) Temp Pulse Resp BP BP Pulse Ox 01/30/20 15:30 98.1 F 55 L 16 145/71 H 96 01/30/20 12:00 97.8 F 59 L 16 161/71 H 99 01/30/20 07:40 98.2 F 48 L 16 136/77 93 L Weight Weight 175 lb 8 oz I&O: 01/29/20 01/30/20 01/31/20 06:59 06:59 06:59 Intake Total 1437 1280 Output Total 1450 900 Balance -13 380 Result Diagrams: 01/30/20 08:47 01/29/20 04:12 Hospitalist ROS - Review of Systems Constitutional: denies: fever, chills - Medication Medications: Active Medications Generic Name Dose Route Start Last Admin Trade Name Freq PRN Reason Stop Dose Admin Acetaminophen 650 mg 01/27/20 10:15 01/27/20 23:53 Tylenol PO 650 mg Q4H PRN Administration Headache/Fever/Mild Pain (1-3) Apixaban 5 mg 01/29/20 21:00 01/30/20 08:51 Eliquis PO 5 mg BID [facility] Administration Aspirin 81 mg 01/28/20 09:00 01/30/20 08:56 Ecotrin PO 81 mg DAILY [facility] Administration Atorvastatin Calcium 20 mg 01/27/20 21:00 01/29/20 21:10 Lipitor PO 20 mg HS [facility] Administration Benzonatate 100 mg 01/27/20 11:26 01/29/20 21:24 Tessalon PO 100 mg TIDPRN PRN Administration Cough Bisacodyl 10 mg 01/27/20 10:15 01/28/20 21:38 Dulcolax PO 10 mg DAILYPRN PRN Administration Constipation Dronedarone 400 mg 01/29/20 17:00 01/30/20 17:00 Multaq PO 400 mg BID-WM [facility] Administration Furosemide 40 mg 01/27/20 14:00 01/30/20 13:29 Lasix PO 40 mg 0900,1400 [facility] Administration Lisinopril 10 mg 01/30/20 09:00 01/30/20 08:56 Zestril PO 10 mg BID [facility] Administration Metoprolol Succinate 12.5 mg 01/30/20 09:00 01/30/20 08:58 Toprol Xl PO Not Given DAILY [facility] Morphine Sulfate 2 mg 01/27/20 11:30 01/30/20 13:43 Morphine SLOW IVP 2 mg Q4H PRN Administration Pain Pantoprazole Sodium 40 mg 01/27/20 21:00 01/30/20 08:58 Protonix IVP 40 mg Q12HR [facility] Administration Sodium Chloride 10 ml 01/27/20 21:00 01/30/20 09:00 Flush - Normal Saline IVF 10 ml Q12HR [facility] Administration Spironolactone 25 mg 01/28/20 08:00 01/30/20 08:55 Aldactone PO 25 mg QAM-WM [facility] Administration - Exam General Appearance: NAD, awake alert Eye: PERRL, anicteric sclera ENT: normocephalic atraumatic, no oropharyngeal lesions Neck: no JVD Heart: RRR, no murmur, no gallops, no rubs, diminshed peripheral pulses Respiratory: CTAB, no wheezes, no rales, no ronchi Gastrointestinal: soft, non-tender, non-distended, normal bowel sounds Extremities: no cyanosis, no clubbing, no edema Skin: normal turgor, no lesions, no rashes Neurological: cranial nerve grossly intact, normal sensation to touch, no focal deficits, no new deficit Musculoskeletal: normal tone, normal strength, no muscle wasting Hosp A/P - Plan CTA thorax: left pleural effusion, tiny pericardial effusion Abd Ultrasound: echogenic sludge with mild gallbladder wall thickening THis is a 54 year old female who presents with afib after recent CABG one week prior as well as cough Afib/flutter - currently off cardizem drip, on toprol XL 25 mg daily - amiodarone was switched to dronedarone. Plan for outpatient ablation in one to two weeks - continue eliquis Hypertension - started on spironolactone 25 mg, metoprolol reduced to 12.5 mg due to bradycadria - discontinued lisinopril due to cough . Entresto was also discontinued due to cough - will trial imdur 30 mg Cough- possibly from pleural effusion versus allergies vs GERD vs from afib - CTA showed left pleural effusion. She received IV lasix 40 mg on 01/27, Repeat chest X ray 01/28 negative - cough resumed after starting lisinopril so will dc Elevated troponin - likely type II demand ischemia secondary to afib vs post op -troponin downtrending, ECHO done and shows no wall motion abnormalities CAD s/p CABG - continue aspirin 81 mg, statin, metoprolol - she is stable from CV surgery standpoint Gallbladder density - abd US showed sludge Dispo: NPO for possible ablation tomorrow
--- NOTE | 2020-01-30 17:20 | PDOC.EP ---
- Subjective Date: 01/30/20 Time: 08:00 Interval History: rhythm stable overnight with some asymptomatic bradycardia. She is agreeable to ablation as an inpatient prior to discharge. - Review of Systems Constitutional: denies: chills, fever, malaise, sweats, weakness, other Respiratory: denies: cough, dry, hemoptysis, pleuritic pain, shortness of breath, SOB with excertion, sputum, wheezing, other Cardiology: denies: chest pain, edema, heart racing, light headedness, paroxysmal noc. dyspnea, orthopnea, palpitations, passing out, pleuritic pain, pressure, swelling, other Gastrointestinal: denies: abdominal pain, constipation, diarrhea, hematochezia, melena, nausea, vomitting, other Musculoskeletal: denies: unstable gait, falls, neck pain, shoulder pain, arm pain, hand pain, leg pain, foot pain, other - Objective Allergies/Adverse Reactions: Allergies Allergy/AdvReac Type Severity Reaction Status Date / Time Penicillins Allergy Verified 01/09/20 00:50 Tetracyclines Allergy Verified 01/09/20 00:50 Current Medications Acetaminophen (Tylenol) 650 mg PO Q4H PRN PRN Reason: Headache/Fever/Mild Pain (1-3) Last Admin: 01/27/20 23:53 Dose: 650 mg Apixaban (Eliquis) 5 mg PO BID [facility] Last Admin: 01/30/20 08:51 Dose: 5 mg Aspirin (Ecotrin) 81 mg PO DAILY [facility] Last Admin: 01/30/20 08:56 Dose: 81 mg Atorvastatin Calcium (Lipitor) 20 mg PO HS [facility] Last Admin: 01/29/20 21:10 Dose: 20 mg Benzonatate (Tessalon) 100 mg PO TIDPRN PRN PRN Reason: Cough Last Admin: 01/29/20 21:24 Dose: 100 mg Bisacodyl (Dulcolax) 10 mg PO DAILYPRN PRN PRN Reason: Constipation Last Admin: 01/28/20 21:38 Dose: 10 mg Calcium Carbonate (Tums) 1,000 mg PO Q4H PRN PRN Reason: Heartburn or Indigestion Docusate Sodium (Colace) 100 mg PO BID [facility] Furosemide (Lasix) 40 mg PO 0900,1400 [facility] Last Admin: 01/30/20 13:29 Dose: 40 mg Hydrocortisone Acetate (Anusol-Hc) 25 mg IN BID PRN PRN Reason: Hemorrhoids Isosorbide Mononitrate (Imdur) 30 mg PO HS [facility] Loratadine (Claritin) 10 mg PO DAILYPRN PRN PRN Reason: Allergies Metoprolol Succinate (Toprol Xl) 12.5 mg PO DAILY [facility] Last Admin: 01/30/20 08:58 Dose: Not Given Morphine Sulfate (Morphine) 2 mg SLOW IVP Q4H PRN PRN Reason: Pain Last Admin: 01/30/20 13:43 Dose: 2 mg Ondansetron HCl (Zofran) 4 mg IVP Q6H PRN PRN Reason: Nausea/Vomiting Pantoprazole Sodium (Protonix) 40 mg IVP Q12HR [facility] Last Admin: 01/30/20 08:58 Dose: 40 mg Senna/Docusate Sodium (Senokot S) 2 tab PO BID PRN PRN Reason: Constipation Sodium Chloride (Flush - Normal Saline) 10 ml IVF Q12HR [facility] Last Admin: 01/30/20 09:00 Dose: 10 ml Sodium Chloride (Flush - Normal Saline) 10 ml IVF PRN PRN PRN Reason: Saline Flush Spironolactone (Aldactone) 25 mg PO QAM-WM [facility] Last Admin: 01/30/20 08:55 Dose: 25 mg Vital Signs & Weight: Vital Signs Temp Pulse Resp BP BP Pulse Ox 01/30/20 15:30 98.1 F 55 L 16 145/71 H 96 01/30/20 12:00 97.8 F 59 L 16 161/71 H 99 01/30/20 07:40 98.2 F 48 L 16 136/77 93 L Weight 175 lb 8 oz I/O: I/O 01/29/20 01/30/20 01/31/20 06:59 06:59 06:59 Intake Total 1437 1280 Output Total 1450 900 Balance -13 380 - Quality Measures Condition: Atrial Fibrillation/Flutter (hx or current) CV meds: Eliquis: Yes - Physical Exam General: alert & oriented x3, appears well, no apparent distress, speech clear, affect appropriate HEENT: mucus membranes moist, normocephaly Neck: supple neck, midline trachea, no JVD/HJR, no masses, no bruit, no lymphadenopathy, no thromegaly Cardiology: regular rate and rhythm, no murmur, regular rate, regular rhythm, PMI nondisplaced Lungs: clear to auscultation, normal breath sounds, normal exam, no wheeze, rales, rhonchi, no wheezes, no rales, no rhonchi Neurology: cranial nerve 2-12 intact, grossly intact, coordination normal Abdomen: unremarkable, active bowel sounds, HJR negative - Chadsvasc Risk factors Congestive heart failure: 1 Hypertension: 1 Vascular disease: 1 Female: 1 Risk Score: 4 - Labs Result Diagrams: 01/30/20 08:47 01/29/20 04:12 - EKG Interpretation EKG Method: Telemetry EKG shows: Sinus rhythm - Assessment/Plan Assessment/Plan: 1. New onset atrial flutter, possibly typical, and paroxysmal atrial fibrillation seen, now in sinus rhythm after amiodarone. 2. Coronary artery disease, status post recent 4-vessel bypass on 01/09/2020. 3. Hypertension. 4. CHADS-VASc score of 3 to 4, considering gender, vascular disease, hypertension, and potential diabetes. Hemoglobin A1c is 6.4%. Currently not on anticoagulation. 5. left atrial enlargement, 5.21 cm wishes to proceed with CTI flutter ablation EP study tomorrow. Will hold Multaq and AV isak blocking medications in addition to Eliquis starting tonight. she remains in sinus rhythm. NPO after midnight and consent was obtained. we discussed the risks benefits and alternatives. She is agreeable
[2020-01-30] MEDS: Atorvastatin Calcium 20 MG TAB PO SCH (21:44)
[2020-01-30] MEDS: Docusate 100 MG CAP PO SCH (21:45)
[2020-01-31 06:33] LABS: #Basophils 0.1 thou/uL (0.0-0.2); #Eosinphils 0.5 thou/uL (0.0-0.7); #Monocytes 0.8 thou/uL (0.11-0.59); #Neutrophils 5.4 thou/uL (1.40-6.50); %Basophils 0.9 % (0.0-1.0); %Eosinophils 5.2 % (0.0-10.0); %Lymphocytes 23.2 % (21.0-51.0); %Monocytes 8.7 % (0.0-10.0); Hemoglobin 13.4 g/dL (12.0-16.0); Mean Corpuscular HGB CONC 32.3 g/dL (32.0-36.0); Mean Corpuscular Hemoglobin 30.2 pg (27.0-31.0); Mean Corpuscular Volume 93.6 fL (78.0-98.0); Mean Platelet Volume 7.2 fL (7.4-10.4); Platelet Count 275 thou/uL (130-400); RBC Distribution Width 12.8 % (11.5-14.5); Red Blood Cell (RBC) Count 4.44 mill/uL (4.20-5.40); White Blood Cell (WBC) Count 8.6 thou/uL (4.8-10.8)
[2020-01-31 06:49] LABS: Anion Gap 15 mmol/L (10-20); BUN (Urea Nitrogen) 18 mg/dL (9.8-20.1); Calc. Creatinine Clearance 78 mL/min (70-130); Calcium 9.1 mg/dL (7.8-10.44); Carbon Dioxide 23 mmol/L (22-29); Chloride 102 mmol/L (98-107); Estimated GFR-MDRD 55; Glucose 104 mg/dL (70-105); Potassium 3.6 mmol/L (3.5-5.1); Sodium 136 mmol/L (136-145)
[2020-01-31] MEDS ORDERED: Heparin 0 ML ONE (08:51)
[2020-01-31] MEDS ORDERED: Lidocaine 1% (PF) 30 ML VIAL ONE (08:51)
[2020-01-31] MEDS ORDERED: Fentanyl 100 MCG/2 ML VIAL ONE ×3 (08:54→11:20)
[2020-01-31] MEDS ORDERED: Midazolam HCl 5 mg/5 ml Vial ONE (08:54)
[2020-01-31] MEDS ORDERED: Propofol 1,000 MG/100 ML VIAL IV ONE (08:54)
[2020-01-31] MEDS ORDERED: Heparin 10,000 UNITS/ 10 ML VIAL ONE (09:05)
[2020-01-31] MEDS ORDERED: DOPamine 400 MG/D5W 250 ML 250 ML ONE (10:28)
[2020-01-31] MEDS ORDERED: Lidocaine 1% PF 5 ML VIAL ONE (10:52)
[2020-01-31] MEDS ORDERED: hydrALAZINE 20 MG/ML VIAL ONE (11:21)
[2020-01-31] MEDS ORDERED: Acetaminophen/Codeine 30-300mg Tablet PO PRN ×2 (11:45)
[2020-01-31] MEDS: Spironolactone 25 MG TAB PO SCH (12:28)
[2020-01-31] MEDS: Aspirin 81 mg Enteric Coated Tablet PO SCH (12:29)
[2020-01-31] MEDS: Pantoprazole 40 MG VIAL IVP SCH (12:29)
[2020-01-31] MEDS: Docusate 100 MG CAP PO SCH (12:29)
[2020-01-31] MEDS: Furosemide 40 MG TAB PO SCH ×2 (12:30→13:09)
--- NOTE | 2020-01-31 14:14 | OP ---
DATE OF PROCEDURE: 01/31/2020 PROCEDURE PERFORMED: Electrophysiology study and radiofrequency ablation. REASON FOR PROCEDURE: Ms. Schmidt is a 54-year-old woman, who had recently found coronary artery disease requiring bypass surgery about 2 to 3 weeks ago. She was readmitted with rapidly conducted atrial flutter, which appears to be typical isthmus dependent in morphology. Eventually, amiodarone was initiated, which terminated the atrial flutter, but the patient prefers no long-term amiodarone therapy. She is here for EP study and possible ablation of the cavotricuspid isthmus circuit. DESCRIPTION OF PROCEDURE: The patient received deep sedation by Anesthesia specialist. After adequate level of sedation achieved, the left and right femoral veins were prepped, draped, and anesthetized using subcutaneous lidocaine. On the left side, an 11-Latvian sheath was used to advance an intracardiac echocardiogram probe, which was used to monitor the catheters and the pericardial space throughout the procedure. On the right side, two 8-Latvian short sheaths were introduced, through which, a ThermoCool SFST catheter and a Decapolar catheter advanced to the right atrium, His bundle, right ventricle, and CS positions. The intracardiac ultrasound was also used to position the CS catheter. Following this, baseline EP study was performed. Baseline rhythm was sinus rhythm, rates about 70 beats per minute. The QRS was 120 milliseconds, HV measured 52 milliseconds, OR is 180 milliseconds. The sinus node recovery time was measured at 1816 after 500 milliseconds pacing for 30 seconds, cardiac sinus node recovery time was 766. AV Wenckebach was noted at 320 milliseconds. No retrograde VA conduction was seen with ventricular pacing. AV isak ERP was 600/220 milliseconds. Dual AV isak physiology was present, but no AVNRT was inducible. Burst atrial pacing was able to induce an atrial fibrillation, which eventually stabilized the atrial flutter. The atrial flutter cycle length was 225 milliseconds. Burst overdrive pacing at the cavotricuspid isthmus entering the tachycardia and the post pacing interval matched the tachycardia cycle length suggestive of isthmus dependent flutter. The cavotricuspid isthmus ablation was performed with total of 8 lesions delivered over 4 minutes and 38 seconds under CARTO 3D map and intracardiac ultrasound monitoring. We were able to terminate the atrial flutter during the ablation and the transisthmus time increased over 160 milliseconds. The unilateral isthmus block was demonstrated by longest transisthmus time adjacent to the ablation line. Following that, IV dobutamine was administered and repeat maneuvers were attempted to reinduce the atrial flutter. Short nonsustained atrial flutter was seen and any reconnections re-ablated. At the end of the case, intracardiac echo and cardiac silhouette did not change. The catheter was removed from the body and Vascade closure was performed in all three femoral venous access sites. CONCLUSION: 1. Inducible atrial fibrillation, which organized into atrial flutter. The atrial flutter appears to be cavotricuspid isthmus dependent. 2. Cavotricuspid isthmus ablation terminated the atrial flutter and prolonged the trans-isthmus time was over 160 milliseconds. 3. Abnormal sinus isak recovery time noted, suggestive of suppressed sinus isak function. 4. Normal His-Purkinje and AV isak function. 5. Dual AV isak physiology without inducible AVNRT and no accessory pathways are documented. PLAN: Monitor for recurrent atrial arrhythmias. Consider short-term anticoagulation and consider Multaq if recurrent atrial fibrillation is seen clinically. Job ID: [id number] [facility]
[2020-01-31 16:40] VITALS: BP 134/70; TEMP 98.1
--- NOTE | 2020-01-31 22:03 | DIS ---
DATE OF ADMISSION: 01/27/2020 DATE OF DISCHARGE: 01/31/2020 DISCHARGE DIAGNOSES: 1. New-onset atrial flutter with possible paroxysmal atrial fibrillation, status post ablation. 2. Cough secondary to Entresto/lisinopril. 3. Elevated troponin secondary to demand ischemia. 4. Incidental gallbladder sludge. CONSULTATIONS: 1. Cardiology with Dr. Charlotte Borden. 2. Dr. Cas Doll with Electrophysiology. 3. Dr. Simone Laws with Cardiothoracic surgery. PROCEDURES: Radiofrequency ablation on 01/30. BRIEF HISTORY OF PRESENT ILLNESS: This is a 54-year-old female, who is status post CABG on 01/08, who presented to the emergency room with worsening cough and palpitations. The patient states that she was recently started on Entresto after her last hospitalization and her dry cough has progressively gotten worse. She reported no relief with her allergy medicine. She also reported episodes of palpitations that occurred 3 days in a row that self-resolved after 2 minutes. A night prior to admission, her palpitations did not resolve and her heart rate was 150, so she came in to the hospital. Her EKG showed atrial fibrillation and her blood pressure was 187/115. She was started on diltiazem drip and admitted for further workup. HOSPITAL COURSE: New-onset atrial flutter/atrial fibrillation: The patient was initially placed on a Cardizem drip. CTA showed no PE but a left pleural effusion so she received one dose of IV lasix. She was resumed on her home metoprolol and her heart rate was well controlled and she was weaned off the Cardizem drip. Cardiology was consulted and she was started on amiodarone. She converted to sinus rhythm. EP was consulted due to the patient having atrial flutter. The patient underwent catheter-induced ablation on 01/30 since she did not want to be on anti-arrhythmics long-term. She will be discharged on Eliquis 5 mg twice daily. She will follow up with Dr. Doll on March 14. If she has any recurrence of her atrial fibrillation, she is to call Dr. Doll's office or come to the hospital. She does not need any anti-arrhythmics on discharge. Cough: The patient had a CTA of her chest, which showed left pleural effusion. She received 1 dose of IV Lasix with improvement. It was thought that her Entresto was causing her cough, so this was discontinued. Her cough significantly improved. However, on 01/28, her blood pressure was elevated, so she was restarted on lisinopril. Her cough returned after initiation of lisinopril, so this was discontinued on 01/29. On 01/30, the patient reported that her cough resolved again. Therefore, I believe that her cough is secondary to her lisinopril. She has no evidence of pneumonia. She should continue her allergy medicine as well. Elevated troponin: The patient had a slightly indeterminate troponin. Echo showed normal EF with no wall motion abnormalities. Hypertension: The patient was noted to have a blood pressure ranging from 130s to 170s. She was started on spironolactone and Imdur while in the hospital. Her metoprolol was reduced to 12.5 mg p.o. daily due to bradycardia. Her Entresto was discontinued. She should follow up with her PCP in a week. DISCHARGE PHYSICAL EXAMINATION: VITAL SIGNS: Temperature 98.1, heart rate 65, respiratory rate 16, O2 saturation 98% on room air, blood pressure 134/70. GENERAL: The patient is alert, awake, and oriented x3. CVS: Regular rate and rhythm with no murmurs, rubs, or gallops. LUNGS: Clear to auscultation bilaterally. ABDOMEN: Positive bowel sounds, soft, nontender, nondistended. EXTREMITIES: No edema. PERTINENT LABORATORY DATA: CBC on 01/30: Normal. BMP on 01/30: Normal. Troponin-I on 01/26: 0.056, 0.064, 0.058. BNP: 601. LFTs on 01/26: Shows elevated alkaline phosphatase of 168. IMAGING DATA: Chest x-ray on 01/26: Cardiomegaly with mild vascular engorgement. CTA thorax on 01/26: Shows no pulmonary embolus. Small left pleural effusion and mild left basilar atelectasis. Tiny pericardial effusion. Increased density in the gallbladder. Abdominal ultrasound on 01/27: Shows echogenic sludge within the gallbladder and mild gallbladder wall thickening. Chest x-ray on 01/28: Mild atelectasis of left lung base. Left pleural effusion is not visualized. Echo on 01/27: EF 55% to 60%. Moderate concentric LVH. Left atrium is moderate to severely dilated. Mild TR. DISCHARGE CONDITION: Stable. ACTIVITY: As tolerated. DIET: Heart healthy diet. DISCHARGE INSTRUCTIONS: The patient is to follow up with Dr. Doll on March 14. The patient should follow up with her PCP in a week. She should stop taking Entresto and take Imdur instead. Job ID: [id number] [facility]
--- NOTE | 2020-02-01 14:30 | EKG ---
Test Reason : POST ABLATION Blood Pressure : / mmHG Vent. Rate : 073 BPM Atrial Rate : 073 BPM P-R Int : 164 ms QRS Dur : 136 ms QT Int : 434 ms P-R-T Axes : 077 220 024 degrees QTc Int : 478 ms Normal sinus rhythm Right bundle branch block Abnormal ECG When compared with ECG of 28-JAN-2020 11:13, (Unconfirmed) No significant change was found Confirmed by SAMRA GIVENS M.D. ([id number]) on 02/01/2020 2:30:19 PM Referred By: HELENA Confirmed By:SAMRA GIVENS M.D.
--- NOTE | 2020-02-02 04:42 | PQF ---
CLINICAL DOCUMENTATION CLARIFICATION FORM: Dear : Christina Boone Date / Time: 02/02/20 Please exercise your independent, professional judgment in responding to the clarification form. Clinical indicators are provided on the bottom of this form for your review Please check appropriate box(es): [ ] Type 1 MD (STEMI) (please also specify site and artery see below) SITE: [ ] Anterior [ ] Apical [ ] Lateral [ ] Inferior [ ] Posterior [ ] Q Wave [ ] Septal [ ] Unable to Determine [ ] Type 1 MD (NSTEMI) [ X ] Type 2 MD (T2MI) secondary to Atrial Flutter [ ] Other diagnosis [ ] Unable to determine In addition, please specify: Present on Admission (POA): [ X ] Yes [ ] No [ ] Unable to determine Physician Signature: Date/Time: For continuity of documentation, please document condition throughout progress notes and discharge summary. Thank You. To be completed by CDI/Coding staff for physician review: Present Clinical Indicators - Signs / Symptoms / Labs Results and Location in Medical Record [X] BP 156/84, Pulse 57, Resp 20, Temp 98.6 Vital signs 01/26 [X] BNP 601.0, CK-MB 1.0, Troponin I 0.035; 0.042; 0.56; 0.064 Laboratory 01/26 [X] TTE Impression: EF estimated 55-60% Cardiac Procedure Dr Porter 01/27 [X] Elevated troponin likely type II demand ischemia H&P p1 Dr Boone 01/26 [X] SOB probably related to diastolic heart failure Consutl Dr Suha Porter 01/26 [X] EKG: completed RBBB and T waves normal ED Notes 01/26 [X] She had no ST elevation but had elevated troponins Consult 01/26 Present Risk Factors Results and Location in Medical Record [X] CAD s/p cABG H&P p1 Dr Boone 01/26 [X] HTN H&P p1 Dr Boone 01/26 [X] Afib. A flutter H&P p1 Dr Boone 01/26 [X] Former smoker H&P p1 Dr Boone 01/26 [X] Overweight H&P p2 Dr Boone 01/26 Present Treatments Results and Location in Medical Record [X] Amiodraone 200 mg oral MAR /12 [X] IV Cardizem 125 mg JUL 23 [X] IV Lasix 40 mg JUL 23 [X] TTE Cardiac Procedure Dr Porter 01/27 [X] Chest X-ray Imaging 01/26 Dr Sam [X] Cardiology consult Consutl Dr Suha Porter 01/26 [X] EKG ED Notes 01/26 [X] Monitor troponin H&P p4 Dr Boone 01/26 CDS/Furnace Mechanic Helper Signature: Trudy Kelley Phone #: ext [phone] Date/Time: 02/02/2020 This is a permanent part of the Medical Record [facility]
--- NOTE | 2020-02-02 04:43 | PQF ---
CLINICAL DOCUMENTATION CLARIFICATION FORM: Dear : Christina Boone Date / Time: 02/02/20 1776 Please exercise your independent, professional judgment in responding to the clarification form. Clinical indicators are provided on the bottom of this form for your review Please check appropriate box(es) to clarify if the following diagnosis has been ruled in our ruled out: Diastolic Heart Failure [ ] Ruled in diagnosis If Ruled in Diastolic Heart failure, can you please specify acuity: [ ] Acute [ ] Chronic [ ] Acute on Chronic [ X ] Ruled out diagnosis [ ] Improving [ ] Cannot rule out diagnosis [ ] Other diagnosis [ ] Unable to determine Physician Signature: Date/Time: For continuity of documentation, please document condition throughout progress notes and discharge summary. Thank You. To be completed by CDI/Coding staff for physician review: Present Clinical Indicators - Signs / Symptoms / Labs Results and Location in Medical Record [X] BP 156/84, Pulse 57, Resp 20, Temp 98.6 Vital signs 01/26 [X] BNP 601.0, CK-MB 1.0, Troponin I 0.035; 0.042; 0.56; 0.064 Laboratory 01/26 [X] TTE Impression: EF estimated 55-60% Cardiac Procedure Dr Porter 01/27 [X] SOB probably related to diastolic heart failure Consutl Dr Suha Porter 01/26 [X] Pleural effusion Consutl Dr Suha Porter 01/26 [X] Chest Xray: Cardiomegaly with mild vascular engorgement Chest Xray 01/26 [X] Her cough has progressed from a dry cough to a productive cough with clear phlegm H&P p1 Dr Boone 01/26 [X] She has minimal if any dependent edema Consult 01/26 [X] tiny pericardial effusion PN 01/28 Present Risk Factors Results and Location in Medical Record [X] CAD s/p cABG H&P p1 Dr Boone 01/26 [X] HTN H&P p1 Dr Boone 01/26 [X] Afib. A flutter H&P p1 Dr Boone 01/26 [X] Former smoker H&P p1 Dr Boone 01/26 [X] Overweight H&P p2 Dr Boone 01/26 Present Treatments Results and Location in Medical Record [X] Amiodraone 200 mg oral MAR 01/26 [X] IV Cardizem 125 mg JUL 23 [X] IV Lasix 40 mg JUL 23 [X] TTE Cardiac Procedure Dr Porter 01/27 [X] Chest X-ray Imaging 01/26 Dr Sam [X] Cardiology consult Consutl Dr Suha Porter 01/26 CDS/Customer Care Assistant Signature: Trudy Kelley Phone #: ext [phone] Date/Time: 02/02/2020 0443 This is a permanent part of the Medical Record [facility]
--- NOTE | 2020-02-03 12:33 | EKG ---
Test Reason : Blood Pressure : / mmHG Vent. Rate : 059 BPM Atrial Rate : 059 BPM P-R Int : 148 ms QRS Dur : 128 ms QT Int : 440 ms P-R-T Axes : 018 247 035 degrees QTc Int : 435 ms Sinus bradycardia Right bundle branch block Inferior infarct , age undetermined Abnormal ECG Confirmed by JOEL WINN M.D. ([id number]), editor newspaper ANA QUICK ([id number]) on 02/03/2020 12:32:56 PM Referred By: Confirmed By:JOEL WINN M.D.
--- NOTE | 2020-02-03 12:33 | EKG ---
Test Reason : Blood Pressure : / mmHG Vent. Rate : 157 BPM Atrial Rate : 156 BPM P-R Int : 000 ms QRS Dur : 124 ms QT Int : 312 ms P-R-T Axes : 000 212 018 degrees QTc Int : 504 ms Atrial fibrillation with rapid ventricular response Right bundle branch block Abnormal ECG Confirmed by JOEL WINN M.D. ([id number]), editorial cartoonist ANA QUICK ([id number]) on 02/03/2020 12:32:55 PM Referred By: Confirmed By:JOEL WINN M.D.
== END 2020-01-31 19:15 | disposition home or self-care (01) | DRG 273 ==
LOC: ERS 01:25 → ERHOLD 03:14 → 2NO 06:08
PROVIDERS: ADMIT Internal Medicine; ATTEND Internal Medicine
PROC: 02583ZZ Destruction of Conduction Mechanism, Percutaneous Approach (ICD-10-PCS; principal; 2020-01-31)
PROC: 4A023FZ Measurement of Cardiac Rhythm, Percutaneous Approach (ICD-10-PCS; 2020-01-31)
PROC: 4A0234Z Measurement of Cardiac Electrical Activity, Percutaneous Approach (ICD-10-PCS; 2020-01-31)
PROC: 02K83ZZ Map Conduction Mechanism, Percutaneous Approach (ICD-10-PCS; 2020-01-31)
DX: I48.3 Typical atrial flutter (principal); I21.A1 Myocardial infarction type 2; J90 Pleural effusion, not elsewhere classified; I48.0 Paroxysmal atrial fibrillation; R05 Cough; T46.4X5A Adverse effect of angiotensin-converting-enzyme inhibitors, initial encounter; T46.5X5A Adverse effect of other antihypertensive drugs, initial encounter; I45.10 Unspecified right bundle-branch block; K82.8 Other specified diseases of gallbladder; I07.1 Rheumatic tricuspid insufficiency; F41.9 Anxiety disorder, unspecified; I10 Essential (primary) hypertension; I25.10 Atherosclerotic heart disease of native coronary artery without angina pectoris; E78.5 Hyperlipidemia, unspecified; Z87.891 Personal history of nicotine dependence; Z88.1 Allergy status to other antibiotic agents; Z88.0 Allergy status to penicillin; Z79.899 Other long term (current) drug therapy; Z95.1 Presence of aortocoronary bypass graft; Z79.82 Long term (current) use of aspirin
CPT/HCPCS: 36415; 71045; 71275; 76705; 76942; 80048; 80053; 82550; 82553; 83690; 83880; 84484; 85014; 85018; 85025; 85049; 87635; 93005; 93010; 93306; 93613; 93623; 93653; 93662; 96360; 96365; 96366; C1732; C1759; C9113; J0360; J1265; J1644; J1650; J1940; J2001; J2250; J2270; J2704; J3010; Q9967; U0003

== ENCOUNTER 2020-02-02 23:10 | Observation (INO) | payer OTHER ==
[2020-02-02 23:41] LABS: #Basophils 0.1 thou/uL (0.0-0.2); #Eosinphils 0.5 thou/uL (0.0-0.7); #Lymphocytes 2.1 thou/uL (1.20-3.40); #Monocytes 0.6 thou/uL (0.11-0.59); #Neutrophils 4.9 thou/uL (1.40-6.50); %Basophils 0.9 % (0.0-1.0); %Eosinophils 6.6 % (0.0-10.0); %Lymphocytes 25.3 % (21.0-51.0); %Monocytes 7.2 % (0.0-10.0); %Neutrophils 59.9 % (42.0-75.0); Hemoglobin 14.6 g/dL (12.0-16.0); Mean Corpuscular HGB CONC 33.1 g/dL (32.0-36.0); Mean Corpuscular Hemoglobin 30.6 pg (27.0-31.0); Mean Corpuscular Volume 92.4 fL (78.0-98.0); Mean Platelet Volume 7.7 fL (7.4-10.4); Platelet Count 247 thou/uL (130-400); RBC Distribution Width 12.6 % (11.5-14.5); Red Blood Cell (RBC) Count 4.78 mill/uL (4.20-5.40); White Blood Cell (WBC) Count 8.2 thou/uL (4.8-10.8)
--- NOTE | 2020-02-02 23:59 | RAD ---
XR Chest 1 View Portable History: Elevated blood pressure Comparison: Radiograph January 29, 2020 Findings: Heart size is enlarged. No pneumothorax. Moderate left effusion. No acute osseous abnormali ty. Impression: Moderate left layering pleural effusion and compressive basilar atelectasis.
[2020-02-03 00:02] LABS: ALT (SGPT) 31 U/L (8-55); AST (SGOT) 31 U/L (5-34); Albumin 4.5 g/dL (3.5-5.0); Alkaline Phosphatase 145 U/L (40-110); Anion Gap 17 mmol/L (10-20); BUN (Urea Nitrogen) 12 mg/dL (9.8-20.1); Bilirubin, Total 0.7 mg/dL (0.2-1.2); Calc. Creatinine Clearance 0 mL/min (70-130); Calcium 9.7 mg/dL (7.8-10.44); Carbon Dioxide 21 mmol/L (22-29); Chloride 101 mmol/L (98-107); Estimated GFR-MDRD 68; Globulin 3.7 g/dL (2.4-3.5); Glucose 165 mg/dL (70-105); Potassium 4.3 mmol/L (3.5-5.1); Protein, Total 8.2 g/dL (6.0-8.3); Sodium 135 mmol/L (136-145)
[2020-02-03] MEDS ORDERED: hydrALAZINE 20 MG/ML VIAL ONE (00:06)
[2020-02-03] MEDS ORDERED: Lorazepam 2 MG/ML VIAL ONE (00:18)
[2020-02-03] MEDS ORDERED: Aspirin 325 MG TAB ONE (00:18)
[2020-02-03 00:29] LABS: CKMB 1.5 ng/mL (0-6.6)
[2020-02-03] MEDS ORDERED: Nitroglycerin 2% Ointment 1 INCH/1 GM Packet ONE (01:36)
[2020-02-03 03:36] VITALS: BMI 32.1
[2020-02-03] MEDS ORDERED: hydrALAZINE 20 MG/ML VIAL SLOW IVP PRN (03:42)
[2020-02-03] MEDS ORDERED: Amlodipine 5 MG TAB PO SCH (03:45)
[2020-02-03 05:03] LABS: Troponin I 0.321 ng/mL (< 0.028)
[2020-02-03] MEDS ORDERED: Hydrocortisone Acetate 25 MG Suppository PR PRN (08:47)
[2020-02-03] MEDS ORDERED: Bumetanide 1 MG/4 ML VIAL IM SCH (09:00)
[2020-02-03 09:17] LABS: Troponin I 0.263 ng/mL (< 0.028)
[2020-02-03] MEDS: Aspirin 81 mg Enteric Coated Tablet PO SCH (09:25)
[2020-02-03] MEDS: Apixaban 5 MG TAB PO SCH ×2 (09:26→20:42)
[2020-02-03] MEDS: HYDROcodone/Acetaminophen 5/325 mg Tablet PO PRN ×2 (09:28→20:42)
[2020-02-03] MEDS: Bumetanide 1 MG/4 ML VIAL IVP SCH (11:29)
--- NOTE | 2020-02-03 15:07 | PDOC.HHP ---
Hospitalist HPI - History of Present Illness "I do not feel well" History of Present Illness: The patient is a 54-year-old female with past medical history of coronary artery disease status post CABG and history of atrial fibrillation status post ablation 3 days ago who presented to the hospital with complaining of not feeling well. The patient stated that she has pain that is localized around her right shoulder and is worse with breathing and movements. In the ER, her troponin was found to be slightly elevated and admission to the hospital for further evaluation was requested. Hospitalist ROS - Medication Medications: Active Medications Generic Name Dose Route Start Last Admin Trade Name Freq PRN Reason Stop Dose Admin Hydrocodone Bitart/Acetaminophen 1 tab 02/03/20 08:47 02/03/20 09:28 Hydrocodone/Acetaminophen 5/325 Mg Tablet PO 1 tab Q6H PRN Administration Pain Apixaban 5 mg 02/03/20 09:00 02/03/20 09:26 Apixaban 5 Mg Tab PO 5 mg BID COSME Administration Aspirin 81 mg 02/03/20 09:00 02/03/20 09:25 Aspirin 81 Mg Enteric Coated Tablet PO 81 mg DAILY COSME Administration Bumetanide 1 mg 02/04/20 09:00 02/03/20 11:29 Bumetanide 1 Mg/4 Ml Vial IVP 1 mg DAILY COSME Administration Metoprolol Succinate 12.5 mg 02/03/20 09:00 02/03/20 09:25 Metoprolol Succinate Xl 25 Mg Tab PO 12.5 mg DAILY COSME Administration Sodium Chloride 10 ml 02/03/20 09:00 02/03/20 09:26 Flush - Normal Saline 10 Ml Syringe IVF 10 ml Q12HR COSME Administration Hospitalist History - Past Medical History Cardiac: reports: AFIB, CAD, HTN Endocrine: reports: Diabetes - Past Surgical History Past Surgical History: reports: Appendectomy, CABG - Family History Family History: reports: no pertinent history - Social History Smoking Status: Current every day smoker Alcohol: reports: Occassional Drugs: reports: none Occupation: retired, had her own business - Exam General Appearance: awake alert ENT: normocephalic atraumatic Neck: supple, no JVD Heart: RRR Respiratory: normal chest expansion, no tachypnea Gastrointestinal: soft, non-tender, non-distended, normal bowel sounds Neurological: cranial nerve grossly intact, no focal deficits Hospitalist Results - Labs Result Diagrams: 02/02/20 23:20 02/02/20 23:20 Lab results: WBC 8.2 thou/uL (4.8-10.8) 02/02/20 23:20 Hgb 14.6 g/dL (12.0-16.0) 02/02/20 23:20 Hct 44.2 % (36.0-47.0) 02/02/20 23:20 MCV 92.4 fL (78.0-98.0) 02/02/20 23:20 Plt Count 247 thou/uL (130-400) 02/02/20 23:20 Neutrophils % 59.9 % (42.0-75.0) 02/02/20 23:20 Sodium 135 mmol/L (136-145) L 02/02/20 23:20 Potassium 4.3 mmol/L (3.5-5.1) 02/02/20 23:20 Chloride 101 mmol/L (98-107) 02/02/20 23:20 Carbon Dioxide 21 mmol/L (22-29) L 02/02/20 23:20 BUN 12 mg/dL (9.8-20.1) 02/02/20 23:20 Creatinine 0.87 mg/dL (0.6-1.1) 02/02/20 23:20 Glucose 165 mg/dL (70-105) H 02/02/20 23:20 Calcium 9.7 mg/dL (7.8-10.44) 02/02/20 23:20 Total Bilirubin 0.7 mg/dL (0.2-1.2) 02/02/20 23:20 AST 31 U/L (5-34) 02/02/20 23:20 ALT 31 U/L (8-55) 02/02/20 23:20 Alkaline Phosphatase 145 U/L (40-110) H 02/02/20 23:20 CK-MB (CK-2) 1.5 ng/mL (0-6.6) 02/02/20 23:20 Troponin I 0.263 ng/mL (< 0.028) H 02/03/20 08:20 B-Natriuretic Peptide 480.0 pg/mL (0-100) H 02/02/20 23:20 Serum Total Protein 8.2 g/dL (6.0-8.3) 02/02/20 23:20 Albumin 4.5 g/dL (3.5-5.0) 02/02/20 23:20 Hospitalist H&P A/P - Problem (1) Coronary artery disease Code(s): I25.10 - ATHSCL HEART DISEASE OF [place] CORONARY ARTERY W/O ANG PCTRS Status: Acute (2) Chest pain Code(s): R07.9 - CHEST PAIN, UNSPECIFIED Status: Acute (3) Hypertension Code(s): I10 - ESSENTIAL (PRIMARY) HYPERTENSION Status: Acute (4) Diabetes mellitus Code(s): E11.9 - TYPE 2 DIABETES MELLITUS WITHOUT COMPLICATIONS Status: Acute (5) S/P CABG x 4 Status: Acute - Plan Plan: The patient's symptoms are vague and likely not related to coronary artery disease. Her troponin was slightly elevated and that is probably due to the recent ablation procedure. Her chest pain is atypical and localized. I will try to treat her with lidocaine patch and Tylenol. Continue her home medications.
[2020-02-03] MEDS: Lidocaine 5% Patch TD SCH (17:06)
[2020-02-03] MEDS: Colchicine 0.6 MG TAB PO SCH (20:42)
[2020-02-03] MEDS ORDERED: Atorvastatin Calcium 20 MG TAB PO SCH (21:00)
--- NOTE | 2020-02-04 00:06 | ULT ---
US Carotid Doppler STANDARD History: Carotid bruit Comparison: None. Findings: Real-time grayscale, color and spectral analysis of the extracranial carotid and vertebral arteries was performed. There is high-grade calcific plaque both carotid bulbs and proximal internal carotid arteries. Elevat ed peak systolic velocity within the right mid internal carotid artery measures 276 cm/s. High-grade stenosis of the left internal carotid artery with peak systolic velocity measuring 417 cm/ s. Antegrade flow both vertebral arteries. Impression: Severe internal carotid artery stenoses bilaterally. Evaluation for surgical intervention recommended. Nurse practitioner was notified by the technologist. Also the patient's nurse was notified via teleph one at 12:03 AM.
--- NOTE | 2020-02-04 01:01 | CON ---
DATE OF CONSULTATION: HISTORY: Catina Schmidt is a 54-year-old white female patient of Dr. Mims, who had an abnormal Cardiolite in July 2018 with a small area of mid anterior ischemia. It was recommended she undergo cardiac catheterization, but due to multiple other commitments, she did not. She then presented on January 07 with a non-STEMI. In Dr. Mims' absence, she underwent catheterization by Dr. Jj. She was found to have an 80% mid LAD lesion, 80% first obtuse marginal, total occlusion of the circumflex in the mid vessel, unable to pass a wire across this. There was also 80% proximal RCA disease. She had normal left ventricular function. She underwent CABG x4 by Dr. Jacob. NEFF was placed to the LAD, vein graft to the right coronary artery, vein graft to the first obtuse marginal, and a small radial to the diagonal. She was discharged on January 12 and then readmitted on January 27, 2020, with complaints of palpitations. She was found to have atrial fibrillation and atrial flutter. She underwent flutter ablation by Dr. Doll on January 30. Immediately after that, Ms. Schmidt states that she was having right-sided chest pain and right shoulder pain. The pain is pleuritic in nature. The pain was not positionally related. She then had problems when she was discharged with elevated blood pressure and came to the emergency room. With this discomfort and mildly elevated troponin I, she is admitted for further evaluation. She continues to have pain with deep inspiration on the right side of her chest and her right shoulder. PAST MEDICAL HISTORY: Coronary artery disease, hypertension, hypercholesterolemia, atrial fibrillation. OPERATIONS: Appendectomy and CABG. MEDICATIONS: 1. Eliquis 5 b.i.d. 2. Aspirin 81 daily. 3. Lipitor 20 at bedtime. 4. Isosorbide mononitrate 30 at bedtime. 5. Metoprolol 12.5 daily. 6. Spironolactone 25 mg q.a.m. ALLERGIES: PENICILLIN AND TETRACYCLINE. SOCIAL HISTORY: She is a smoker, 5 or less cigarettes per day. REVIEW OF SYSTEMS: Unremarkable except as noted above. PHYSICAL EXAMINATION: VITAL SIGNS: 143/74, pulse of 63. HEENT: PERRL. NECK: Supple. CHEST: Clear. CARDIAC: S1 and S2 are normal without any S3, S4, murmurs or rubs. ABDOMEN: Normal bowel sounds without tenderness or organomegaly. EXTREMITIES: Reveal no clubbing, cyanosis, or edema. NEUROLOGIC: Grossly intact. SKIN: Warm and dry. MUSCULOSKELETAL: Reveals no palpable chest wall tenderness. LABORATORY DATA: EKG reveals normal sinus rhythm, possible left atrial enlargement, and right bundle-branch block. CBC is unremarkable. Sodium 135, potassium 4.3, chloride 101, carbon dioxide 21, BUN 12, creatinine 0.87. Troponin I is up to 0.321. BNP 480.0. IMPRESSION: Pleuritic chest pain that started immediately following radiofrequency ablation of atrial flutter on January 30. She has continued to have pleuritic pain. She is approximately 3-1/2 weeks post CABG and I doubt that this represents post-pericardiotomy syndrome. It is probably related to her flutter ablation. Echocardiography will be performed to rule out pericardial effusion. Also, she will be started on a therapeutic trial of colchicine. The elevated troponin I, I agree, is probably related to her ablation procedure. Job ID: [id number]
[2020-02-04] MEDS: HYDROcodone/Acetaminophen 5/325 mg Tablet PO PRN ×3 (03:50→17:16)
[2020-02-04] MEDS ORDERED: Lidocaine Patch Removal 1 EACH TOP SCH (04:00)
[2020-02-04] MEDS ORDERED: Spironolactone 25 MG TAB PO SCH (08:00)
[2020-02-04] MEDS: Aspirin 81 mg Enteric Coated Tablet PO SCH (09:46)
[2020-02-04] MEDS: Apixaban 5 MG TAB PO SCH (09:47)
[2020-02-04] MEDS: Colchicine 0.6 MG TAB PO SCH (09:47)
--- NOTE | 2020-02-04 12:53 | PDOC.HOSPP ---
- Subjective Encounter Date: 02/04/20 Subjective: The patient still complaining of vague chest and shoulder pain. - Objective Vital Signs & Weight: Vital Signs (12 hours) Temp Pulse Resp BP BP Pulse Ox 02/04/20 11:55 97.7 F 60 16 143/85 H 96 02/04/20 07:30 97.8 F 62 16 186/96 H 168/95 H 96 02/04/20 03:24 97.6 F 61 18 195/98 H 95 Weight Weight 175 lb 4.8 oz I&O: 02/03/20 02/04/20 02/05/20 06:59 06:59 06:59 Intake Total 240 1200 Output Total 200 1900 Balance 40 -700 Result Diagrams: 02/02/20 23:20 02/02/20 23:20 Hospitalist ROS - Medication Medications: Active Medications Generic Name Dose Route Start Last Admin Trade Name Freq PRN Reason Stop Dose Admin Hydrocodone Bitart/Acetaminophen 1 tab 02/03/20 08:47 02/04/20 11:24 Hydrocodone/Acetaminophen 5/325 Mg Tablet PO 1 tab Q6H PRN Administration Pain Apixaban 5 mg 02/03/20 09:00 02/04/20 09:47 Apixaban 5 Mg Tab PO 5 mg BID COSME Administration Aspirin 81 mg 02/03/20 09:00 02/04/20 09:46 Aspirin 81 Mg Enteric Coated Tablet PO 81 mg DAILY COSME Administration Atorvastatin Calcium 20 mg 02/03/20 21:00 02/03/20 20:42 Atorvastatin Calcium 20 Mg Tab PO 20 mg HS COSME Administration Bumetanide 1 mg 02/04/20 09:00 02/03/20 11:29 Bumetanide 1 Mg/4 Ml Vial IVP 1 mg DAILY COSME Administration Colchicine 0.6 mg 02/03/20 21:00 02/04/20 09:47 Colchicine 0.6 Mg Tab PO 0.6 mg BID COSME Administration Isosorbide Mononitrate 30 mg 02/03/20 21:00 02/03/20 20:42 Isosorbide Mononitrate Er 30 Mg Tab PO 30 mg HS OCSME Administration Lidocaine 1 patch 02/03/20 16:00 02/03/20 17:06 Lidocaine 5% Patch TD 1 patch 1600 COSME Administration Metoprolol Succinate 12.5 mg 02/03/20 09:00 02/04/20 09:46 Metoprolol Succinate Xl 25 Mg Tab PO 12.5 mg DAILY COSME Administration Miscellaneous Medication 1 each 02/04/20 04:00 02/04/20 03:49 Lidocaine Patch Removal 1 Each TOP 1 each 0400 COSME Administration Sodium Chloride 10 ml 02/03/20 09:00 02/04/20 09:47 Flush - Normal Saline 10 Ml Syringe IVF 10 ml Q12HR COSME Administration Spironolactone 25 mg 02/04/20 08:00 02/04/20 09:46 Spironolactone 25 Mg Tab PO 25 mg QAM-WM COSME Administration - Exam General Appearance: awake alert ENT: normocephalic atraumatic Neck: supple, no JVD Heart: RRR Respiratory: normal chest expansion, no tachypnea Extremities: no cyanosis, no clubbing Neurological: cranial nerve grossly intact, no focal deficits Hosp A/P (1) Coronary artery disease Code(s): I25.10 - ATHSCL HEART DISEASE OF [place] CORONARY ARTERY W/O ANG PCTRS Status: Acute (2) Chest pain Code(s): R07.9 - CHEST PAIN, UNSPECIFIED Status: Acute (3) Hypertension Code(s): I10 - ESSENTIAL (PRIMARY) HYPERTENSION Status: Acute (4) Diabetes mellitus Code(s): E11.9 - TYPE 2 DIABETES MELLITUS WITHOUT COMPLICATIONS Status: Acute (5) S/P CABG x 4 Status: Acute (6) Carotid artery stenosis Code(s): I65.29 - OCCLUSION AND STENOSIS OF UNSPECIFIED CAROTID ARTERY Status: Acute - Plan 02/02: The patient's symptoms are vague and likely not related to coronary artery disease. Her troponin was slightly elevated and that is probably due to the recent ablation procedure. Her chest pain is atypical and localized. I will try to treat her with lidocaine patch and Tylenol. Continue her home medications. 02/03: Troponin level trended down. Carotid ultrasound showed severe bilateral flow limitation. CT angiogram of the carotids is pending. Discussed with Dr. Jacob. The patient will likely be discharged after his evaluation.
--- NOTE | 2020-02-04 13:36 | CT ---
EXAM: CT angiogram neck with IV contrast and 3-D reconstruction PROVIDED CLINICAL HISTORY: Carotid bruit. Recent carotid Doppler examination demonstrated severe stenosis bilateral internal car otid arteries. COMPARISON: Carotid ultrasound on 02/03/2020 FINDINGS: There is a common origin of the innominate artery and left common carotid artery which are patent. Th e bilateral subclavian arteries and bilateral common carotid arteries are patent. There is atherosclerotic plaque and calcifications involving the proximal left internal carotid arter y. The proximal left internal carotid artery is tortuous. There are tandem focal areas of severe narrowing (greater than 70%) involving the proximal left internal carotid artery. There is a blush of contrast measuring 3 mm adjacent to the medial aspect proximal left internal carotid artery which may represent a penetrating ulcer. Similar finding is seen just posterior to the region of the origin of the left internal carotid artery. There is mild atherosclerotic plaque involving the proximal right internal carotid artery with mild n arrowing involving the proximal right internal carotid artery comes degree of narrowing is less than 50%. Mild atherosclerotic plaque is seen in the region of the carotid siphons with irregular atherosclerot ic plaque in the right carotid siphon resulting in narrowing. The degree of narrowing is mild in severity; although, there is questionable mild/moderate narrowing seen further distally which is inco mpletely imaged. The right vertebral artery is dominant and patent. The left vertebral artery is generally small in ca liber with suggestion mild narrowing near the origin. Postoperative changes related to CABG are seen. There is mild stranding in the visualized anterior davila perior mediastinum which is likely related to postoperative changes of CABG and similar to CTA chest on 01/27/2020. Tiny pleural effusion is seen on the left with associated passive atelectasis which is similar to ha or study. There is mild volume loss seen within the upper lung zones bilaterally, but the exam is obtained in expiratory phase of imaging. Degenerative changes are seen in the cervical spine. Mucous retention cysts are seen in each maxillary antrum. IMPRESSION: 1. Severe (greater than 70%) tandem stenosis involving the proximal left internal carotid artery with prominent atherosclerotic plaque and calcification seen. There are small blushes of contrast seen adjacent to the proximal left internal carotid artery 1 seen just posteromedial to the origin of the left internal carotid artery and second focus just medial to the proximal left internal carotid artery which measures 3 mm. Findings may represent small penetrating atheromatous ulcers. Proximal le ft internal carotid artery is tortuous. 2. Mild narrowing (less than 50%) stenosis involving the proximal right internal carotid artery. 3. Atherosclerotic irregularity and narrowing in the right carotid siphon. 4. Dominant and patent right vertebral artery with generalized small caliber the left vertebral arter y with suggestion of at least mild narrowing at the origin. 5. Postoperative changes related to CABG. Stranding in the anterior superior mediastinum is likely du e to the postoperative change and was seen on CTA chest on 01/27/2020. 6. Tiny left pleural effusion and atelectasis.
--- NOTE | 2020-02-04 14:16 | CON ---
DATE OF CONSULTATION: HISTORY OF PRESENT ILLNESS: This is a 54-year-old female whom I evaluated about 3 weeks ago when she presented to the hospital with a non-STEMI, was found to have severe 3-vessel coronary artery disease. Evaluation otherwise at that time included elevated liver function tests with a history of regular alcohol use. She was also noted to have a left carotid bruit at that time and ultimately underwent coronary bypass grafting on 01/08 with grafts to the LAD, OM, right coronary artery, and diagonal. Initially she did well, but then re-presented on 01/26 with atrial fibrillation/flutter and underwent an ablation. She was feeling well prior to the ablation. However, subsequent to the ablation, she has had some right-sided chest and shoulder discomfort, which has been persistent. She, therefore, was readmitted to the hospital and the carotid ultrasound was performed. The reason this was done here is that the patient states she was scheduled to have a carotid ultrasound done tomorrow at Dr. Mims' office and asked if she needed it early. It demonstrated a velocity in the right internal carotid artery of 276 cm/sec and the left internal carotid of 417 cm/sec. She has a CTA pending and a cardiac echo pending today. She has had no symptoms to suggest a TIA or stroke. PAST MEDICAL HISTORY: Significant for hypertension, which has been poorly controlled primarily due to noncompliance. She also has a history of dyslipidemia. PHYSICAL EXAMINATION: GENERAL: Today, she actually looks quite good compared to pre and postoperatively. NECK: Continues to demonstrate a left carotid bruit. LUNGS: Clear. CARDIAC: Regular rhythm without murmurs. She has no rub. Her sternal incision is healing nicely and she has no peripheral edema. ASSESSMENT AND PLAN: At this time, we will follow up with her CTA and ultimately she may need carotid artery intervention. However, I think that since it is asymptomatic and she is on significant anticoagulation at this point including Eliquis 5 b.i.d. related to recent ablation therapy, aspirin 81 a day, she should be relatively safe from stroke in the near future and when she has recovered, a little bit more consideration can be given to intervention. Job ID: [id number]
[2020-02-04] MEDS: Bumetanide 1 MG/4 ML VIAL IVP SCH (14:54)
[2020-02-04] MEDS: Lidocaine 5% Patch TD SCH (15:52)
[2020-02-04 16:18] VITALS: TEMP 97.6
--- NOTE | 2020-02-04 16:41 | PRG ---
DATE OF SERVICE: 02/04/2020 CT angiography was reviewed and did reveal a severe stenosis in the left internal carotid artery that extended cephalad a significant distance. She will probably be a candidate for a TCAR in the future, but would not anticipate any intervention for several weeks. The right internal carotid artery also has disease, although it is not as severe as the left side. She will need treatment for her hypertension and I have reviewed the echo, which Dr. Beauchamp thought was EF of 50% to 55%, perhaps slightly less than this, but certainly her blood pressure needs to be lower than the current level. She states that the Entresto caused her to cough, so we will have to plan on amlodipine or some other approach prior to discharge. Job ID: [id number]
[2020-02-04 18:09] VITALS: BP 150/90
--- NOTE | 2020-02-04 21:31 | DIS ---
DATE OF ADMISSION: 02/03/2020 DATE OF DISCHARGE: 02/04/2020 DISCHARGE DIAGNOSES: 1. Severe bilateral carotid artery stenosis. 2. Chest discomfort. 3. Hypertension. 4. Diabetes mellitus. 5. History of coronary artery disease, status post coronary artery bypass graft. DISCHARGE MEDICATIONS: The patient will continue her home medications with the following changes: 1. Increase the dose of Toprol-XL to 25 mg orally daily. 2. Add a new medication colchicine 0.6 mg orally twice daily. HISTORY OF PRESENT ILLNESS AND HOSPITAL COURSE: The patient is a 54-year-old female with history of coronary artery disease, status post CABG, and history of atrial fibrillation, status post ablation 3 days prior to presentation, who presented to the hospital with complaints of generalized aching and chest pain. The patient's troponin was found to be slightly elevated in the ER, and observation was initiated. Her troponin trended down and the number was likely related to her recent ablation. Echocardiogram was performed, which showed EF of 50% to 55% with no wall motion abnormalities or pericardial effusion. Carotid ultrasound, which was scheduled as an outpatient was performed showing severe bilateral flow limitation. CT angiogram was also performed showing severe greater than 70% tandem stenosis involving the proximal left internal carotid artery and less than 50% stenosis involving the proximal right internal carotid artery. The patient was seen by Dr. Jacob and no acute intervention was recommended at this time. She will follow up with her regular schedule outpatient. Job ID: [id number]
[2020-02-05] MEDS ORDERED: Polyethylene Glycol 3350 17 GM Packet PO SCH (09:00)
== END 2020-02-04 18:31 | disposition home or self-care (01) ==
LOC: ERS 23:10 → 2SW 02-03 01:46
PROVIDERS: ADMIT Internal Medicine; ATTEND Internal Medicine
DX: R07.89 Other chest pain (principal); I65.23 Occlusion and stenosis of bilateral carotid arteries; I10 Essential (primary) hypertension; I25.10 Atherosclerotic heart disease of native coronary artery without angina pectoris; E11.9 Type 2 diabetes mellitus without complications; I48.91 Unspecified atrial fibrillation; F17.200 Nicotine dependence, unspecified, uncomplicated; J90 Pleural effusion, not elsewhere classified; Z79.01 Long term (current) use of anticoagulants; Z79.82 Long term (current) use of aspirin; Z79.899 Other long term (current) drug therapy; Z88.0 Allergy status to penicillin; Z88.1 Allergy status to other antibiotic agents; Z95.1 Presence of aortocoronary bypass graft
CPT/HCPCS: 36415; 70498; 71045; 80053; 82553; 83880; 84484; 85025; 93005; 93306; 93880; 96374; 96375; G0378; J0360; J2060; J3490

== ENCOUNTER 2020-03-21 06:54 | Outpatient (CLI) | payer OTHER ==
[2020-03-21 15:44] LABS: Hemoglobin 16.8 g/dL (12.0-16.0); Mean Corpuscular Hemoglobin 28.3 PG (27.0-33.0); Mean Corpuscular Volume 83.2 fl (80.0-100.0); Mean Platelet Volume 9.7 fl (7.4-10.4); Platelet Count 384 10x3/uL (130-400); RBC Distribution Width 12.5 % (11.5-14.5); Red Blood Cell (RBC) Count 5.94 10x6/uL (3.90-5.20); White Blood Cell (WBC) Count 9.5 10x3/uL (4.5-11.0)
[2020-03-21 16:12] LABS: Anion Gap 20 mmol/L (10-20); BUN (Urea Nitrogen) 15 mg/dL (9.8-20.1); Calc. Creatinine Clearance 0 mL/min (70-130); Carbon Dioxide 19 mmol/L (22-29); Chloride 102 mmol/L (98-107); Estimated GFR-MDRD 48; Glucose 131 mg/dL (70-105); Sodium 136 mmol/L (136-145)
[2020-03-22 15:03] LABS: SARS-CoV-2 MS2 Positive; SARS-CoV-2 N Gene Negative; SARS-CoV-2 S Gene Negative; SARS-CoV-2 by NAA Not Detected (NotDetected); SARS-CoV-2 orf1ab Negative
== END 2020-03-21 06:55 | disposition home or self-care (01) ==
LOC: LABBT 06:54
PROVIDERS: ATTEND Thoracic Surgery (Cardiothoracic Vascular Surgery)
DX: Z01.812 Encounter for preprocedural laboratory examination (principal); Z20.828 Contact with and (suspected) exposure to other viral communicable diseases; I65.29 Occlusion and stenosis of unspecified carotid artery
CPT/HCPCS: 80048; 85027; 87635; U0003

== ENCOUNTER 2020-05-08 08:29 | Outpatient (CLI) | payer OTHER ==
[2020-05-08 17:14] LABS: Hemoglobin 16.4 g/dL (12.0-16.0); Mean Corpuscular HGB CONC 33.6 G/DL (32.0-36.0); Mean Corpuscular Hemoglobin 28.1 PG (27.0-33.0); Mean Corpuscular Volume 83.6 fl (80.0-100.0); Platelet Count 268 10x3/uL (130-400); RBC Distribution Width 13.9 % (11.5-14.5); Red Blood Cell (RBC) Count 5.84 10x6/uL (3.90-5.20); White Blood Cell (WBC) Count 8.7 10x3/uL (4.5-11.0)
[2020-05-08 17:34] LABS: Anion Gap 15 mmol/L (10-20); BUN (Urea Nitrogen) 13 mg/dL (9.8-20.1); Calc. Creatinine Clearance 0 mL/min (70-130); Calcium 9.9 mg/dL (7.8-10.44); Carbon Dioxide 21 mmol/L (22-29); Chloride 102 mmol/L (98-107); Glucose 158 mg/dL (70-105); Potassium 4.2 mmol/L (3.5-5.1); Sodium 134 mmol/L (136-145)
[2020-05-09 02:43] LABS: SARS-CoV-2 MS2 Positive; SARS-CoV-2 N Gene Negative; SARS-CoV-2 S Gene Negative; SARS-CoV-2 by NAA Not Detected (NotDetected); SARS-CoV-2 orf1ab Negative
== END 2020-05-08 08:30 | disposition home or self-care (01) ==
LOC: LABBT 08:29
PROVIDERS: ATTEND Thoracic Surgery (Cardiothoracic Vascular Surgery)
DX: Z01.812 Encounter for preprocedural laboratory examination (principal); Z20.828 Contact with and (suspected) exposure to other viral communicable diseases; I65.22 Occlusion and stenosis of left carotid artery
CPT/HCPCS: 80048; 85027; 87635; U0003

== ENCOUNTER 2020-05-08 15:45 | Inpatient (IN) | payer OTHER ==
--- NOTE | 2020-05-13 17:58 | HP ---
DATE OF SURGERY: 05/14/2020. HISTORY OF PRESENT ILLNESS: This is a 54-year-old female, who presented about 3 months ago with chest pain, congestive heart failure, poorly-controlled hypertension. She underwent coronary artery bypass grafting on 01/08 to LAD, OM, right coronary artery, and diagonal. She had markedly elevated pressures at the time of surgery in the right heart, but these improved post-bypass. She did have some runs of atrial fibrillation. She was found to have significant carotid artery disease as well. She is now being admitted for elective TCAR. PAST MEDICAL HISTORY: Includes hypertension, dyslipidemia, smoking history, and atrial fibrillation. PAST SURGICAL HISTORY: Includes CABG as well as ablation for her SVT. HOME MEDICATIONS: Included: 1. Spironolactone. 2. Aspirin. 3. Plavix. 4. Atorvastatin. 5. Eliquis. 6. Metoprolol. 7. Isosorbide. 8. Protonix. ALLERGIES: PENICILLIN AND TETRACYCLINE. PHYSICAL EXAMINATION: VITAL SIGNS: Height 5 feet 2 inches, weight 170. Blood pressure 177/99. NECK: Left carotid bruit present. HEART: Regular rate and rhythm. No murmurs. CHEST: Healed chest incision. LUNGS: Clear to auscultation. EXTREMITIES: Right arm incision well healed. Lower extremities, trace ankle edema. ASSESSMENT AND PLAN: The patient is status post coronary artery bypass grafting with postoperative atrial fibrillation/flutter with a flutter ablation and then intermittent paroxysmal atrial fibrillation. She is now being admitted for TCAR of carotid artery and informed consent has been obtained. Job ID: [id number]
[2020-05-14] MEDS ORDERED: Clindamycin/D5W 900 mg/50 ml Premix Bag ONE (06:14)
[2020-05-14] MEDS ORDERED: Levofloxacin 500 mg/D5W 100 ml Premix Bag ONE (06:14)
[2020-05-14] MEDS ORDERED: Phenylephrine 10 MG/ML VIAL ONE (06:32)
[2020-05-14] MEDS ORDERED: Midazolam HCl 2 mg/2 ml Vial ONE (06:32)
[2020-05-14] MEDS ORDERED: Fentanyl 100 MCG/2 ML VIAL ONE ×3 (06:32→19:05)
[2020-05-14] MEDS ORDERED: Heparin 5,000 UNITS/ML VIAL ONE (06:37)
[2020-05-14] MEDS ORDERED: Protamine Sulfate 50 MG/5 ML VIAL ONE (06:37)
[2020-05-14] MEDS ORDERED: Ondansetron HCl/PF 4 MG/2 ML Vial IVP PRN (09:51)
[2020-05-14] MEDS ORDERED: Ondansetron PF 4 MG/2 ML Vial IVP PRN (09:55)
[2020-05-14] MEDS ORDERED: Phenylephrine 40 MG in Sodium Chloride 0.9% 250 ML 250 ML IVPB PRN (09:55)
[2020-05-14] MEDS ORDERED: HYDROcodone/Acetaminophen 5/325 mg Tablet PO PRN ×2 (09:55)
[2020-05-14] MEDS ORDERED: Acetaminophen 325 MG TAB PO PRN (09:55)
[2020-05-14] MEDS ORDERED: Nitroglycerin 50 MG/250 ML BOT 250 ML IVPB PRN (09:55)
[2020-05-14] MEDS ORDERED: Fentanyl 100 MCG/2 ML VIAL SLOW IVP PRN ×2 (09:55)
[2020-05-14] MEDS ORDERED: Lidocaine 1% PF 5 ML VIAL ONE (10:24)
[2020-05-14] MEDS ORDERED: Ondansetron PF 4 MG/2 ML Vial ONE ×2 (10:24→10:55)
[2020-05-14] MEDS ORDERED: Glycopyrrolate 0.2 MG/ML 5 ML SYRINGE ONE ×2 (10:24)
[2020-05-14] MEDS ORDERED: Rocuronium Bromide 10 MG/ML (10ML VIAL) ONE (10:24)
[2020-05-14] MEDS ORDERED: PROPOFOL 200 MG/20 ML VIAL ONE (10:24)
[2020-05-14] MEDS ORDERED: Ketorolac Tromethamine 30 MG/ML VIAL ONE (10:24)
[2020-05-14] MEDS ORDERED: Dexamethasone 20 MG/5 ML VIAL ONE (10:24)
[2020-05-14] MEDS ORDERED: PHENYLEPHRINE-NS 100 MCG/ML 10 ML SYRINGE ONE (10:24)
[2020-05-14] MEDS ORDERED: ePHEDrine 50 MG/ML VIAL ONE (10:24)
[2020-05-14] MEDS: Sodium Chloride 0.9% 1,000 ML IV SCH (10:45)
--- NOTE | 2020-05-14 12:04 | OP ---
DATE OF PROCEDURE: 05/14/2020 PREOPERATIVE DIAGNOSIS: Critical left carotid stenosis. POSTOPERATIVE DIAGNOSIS: Critical left carotid stenosis. PROCEDURE PERFORMED: Left trans-carotid artery revascularization using a 9 x 40 self-expanding stent and predilation with a 5 x 2 balloon. CONTRAST: 10 mL. FLUORO: 5 minutes 36 seconds. CLAMP TIME: 12 minutes. DESCRIPTION OF PROCEDURE: After adequate anesthesia had been obtained, the patient was prepped and draped. Ultrasound-guided left common femoral artery 5-Uzbek catheter was then placed as radial art line could not be placed. Following this, ultrasound-guided puncture of the right common femoral vein was performed and the large venous sheath was inserted. Following this, incision was made at the supraclavicular area on the left, isolating the common carotid artery, which seemed rather deep. Vagus nerve was identified and avoided. After a loop had been placed around the common carotid artery, the patient was heparinized and ACT of 300 seconds plus was obtained. A pursestring 5-0 suture was placed in the common carotid artery and the micro needle and micro wire were placed and then the micro catheter placed and angiogram was obtained. The small guidewire was then manipulated into the external carotid artery and the micro catheter advanced there, where the stiff wire was advanced and then the larger sheath placed in the common carotid artery. It was secured to the skin, following which the carotid artery was clamped proximally. After this had been done, a wire was advanced up the internal carotid artery without difficulty and a 5 x 2 balloon was inflated twice due to slight watermelon seeding. Following this, the stent was then deployed, and after 2 minutes and AP and lateral angiograms showing good result, the sheath was removed. Protamine given systemically. Additional Prolene sutures were required in the carotid puncture site. After obtaining good hemostasis, the wounds were closed and the femoral sheath on the right was removed. Job ID: [id number]
[2020-05-14] MEDS ORDERED: Simvastatin 20 MG TAB PO SCH (21:00)
[2020-05-15 02:03] VITALS: BMI 31.1
[2020-05-15 07:51] VITALS: TEMP 98.6
[2020-05-15] MEDS ORDERED: Aspirin Chewable 81 MG TAB PO SCH (09:00)
[2020-05-15] MEDS ORDERED: Metoprolol Tartrate 25 MG TAB PO SCH (09:00)
[2020-05-15] MEDS ORDERED: Clopidogrel Bisulfate 75 MG TAB PO SCH (09:00)
[2020-05-15] MEDS: Sodium Chloride 0.9% 1,000 ML IV SCH (09:12)
--- NOTE | 2020-05-15 14:09 | PQF ---
CLINICAL DOCUMENTATION CLARIFICATION FORM: Dear Dr. Indra Jacob Date: 05-15-20 Please exercise your independent, professional judgment in responding to the clarification form. Clinical indicators are provided on the bottom of this form for your review. Please check appropriate box(es): [ ] Chronic Diastolic Heart Failure [ y] Chronic Systolic Heart Failure [ ] Chronic combined Systolic and Diastolic Heart Failure [ ] No CHF present [ ] Other diagnosis [ ] Unable to determine For continuity of documentation, please document condition throughout progress notes and discharge summary. Thank You. To be completed by CDI/Coding staff for physician review: CLINICAL INDICATORS - SIGNS / SYMPTOMS / LABS / RESULTS AND LOCATION IN EMR 02.04.20 ECHO: EF 50-55%; mild mitral regurgitation is present; mild tricuspid regurgitation 12. H&P ([place]): .presented 3 months ago with CP, CHF, poorly-controlled Hypertension. Underwent CABG 01-09-20. RISKS FACTORS / RESULTS AND LOCATION IN EMR 12.29 H&P ([place]): * CHF; CAD; HTN; TREATMENTS / RESULTS AND LOCATION IN EMR 12.29 H&P ([place]): * Home medications: Spironolactone, Metoprolol CDS Signature: Laura Hernandez RN, CCDS Phone #: [phone] [email or web address] This is a permanent part of the Medical Record [facility]
--- NOTE | 2020-05-16 07:08 | DIS ---
DATE OF ADMISSION: 05/14/2020 DATE OF DISCHARGE: 05/15/2020 HOSPITAL COURSE: The patient was brought to the hospital on 05/14 where she underwent a TCAR for a critical left internal carotid artery stenosis. She had a 9 x 40 stent placed with predilation and no post-dilation with excellent angiographic result going from 90% to 0%. Postoperatively, she did well. Blood pressure in the 150 range. She will be discharged home on her admitting medicines with instructions to resume her Eliquis in 5 days. She has also been asked to continue the Plavix for a full month after surgery, as well as the aspirin. Discharge and followup instructions were given. Job ID: [id number]
== END 2020-05-15 10:10 | disposition home or self-care (01) | DRG 35 ==
LOC: SURG A 05-14 06:01 → EDSTATUS 05-14 15:45 → CCU 05-14 22:10
PROVIDERS: ADMIT Thoracic Surgery (Cardiothoracic Vascular Surgery); ATTEND Thoracic Surgery (Cardiothoracic Vascular Surgery)
PROC: 037L34Z Dilation of Left Internal Carotid Artery with Drug-eluting Intraluminal Device, Percutaneous Approach (ICD-10-PCS; principal; 2020-05-14)
DX: I65.22 Occlusion and stenosis of left carotid artery (principal); I50.22 Chronic systolic (congestive) heart failure; I48.19 Other persistent atrial fibrillation; I11.0 Hypertensive heart disease with heart failure; I25.10 Atherosclerotic heart disease of native coronary artery without angina pectoris; E78.5 Hyperlipidemia, unspecified; Z95.1 Presence of aortocoronary bypass graft; Z79.82 Long term (current) use of aspirin; Z79.899 Other long term (current) drug therapy; Z79.01 Long term (current) use of anticoagulants; Z88.0 Allergy status to penicillin; Z88.8 Allergy status to other drugs, medicaments and biological substances; Z68.31 Body mass index [BMI] 31.0-31.9, adult; Z95.5 Presence of coronary angioplasty implant and graft; Z90.49 Acquired absence of other specified parts of digestive tract
CPT/HCPCS: 76000; C1725; C1876; J1100; J1642; J1644; J1885; J1956; J2250; J2370; J2405; J2704; J2720; J3010; J3490

== ENCOUNTER 2021-10-06 10:14 | Outpatient (CLI) | payer OTHER | END 2021-10-06 10:15 | disposition home or self-care (01) | LOC: BICULT 10:14 | PROVIDERS: ATTEND Nurse Practitioner Family | DX: Z12.31 Encounter for screening mammogram for malignant neoplasm of breast (principal); R74.8 Abnormal levels of other serum enzymes; N64.89 Other specified disorders of breast | CPT/HCPCS: 76705; 77063; 77067 ==

== ENCOUNTER 2021-10-09 10:53 | Outpatient (CLI) | payer OTHER | END 2021-10-09 10:54 | disposition home or self-care (01) | LOC: DTY/OP 10:53 | PROVIDERS: ATTEND Family Medicine | DX: E11.69 Type 2 diabetes mellitus with other specified complication (principal) | CPT/HCPCS: 97802 ==

== ENCOUNTER 2021-11-07 15:00 | Outpatient (CLI) | payer OTHER | END 2021-11-07 15:01 | disposition home or self-care (01) | LOC: BICMAMMO 15:00 | PROVIDERS: ATTEND Nurse Practitioner Family | DX: N64.89 Other specified disorders of breast (principal) | CPT/HCPCS: G0279 ==

== ENCOUNTER 2022-07-06 17:30 | Outpatient (CLI) | payer OTHER | END 2022-07-06 17:31 | disposition home or self-care (01) | LOC: SLEEPLAB 17:30 | PROVIDERS: ATTEND Family Medicine | DX: G47.33 Obstructive sleep apnea (adult) (pediatric) (principal); G47.10 Hypersomnia, unspecified | CPT/HCPCS: 95800 ==

== ENCOUNTER 2023-07-30 13:04 | Outpatient (CLI) | payer OTHER | END 2023-07-30 13:05 | disposition home or self-care (01) | LOC: BICMAMMO 13:04 | PROVIDERS: ATTEND Family Medicine | DX: Z12.31 Encounter for screening mammogram for malignant neoplasm of breast (principal); Z80.3 Family history of malignant neoplasm of breast | CPT/HCPCS: 77063; 77067 ==